=== PATIENT | female | born 1955 | race Caucasian/White ===

== ENCOUNTER → 2018-06-14 15:08 | Outpatient (CLI) | payer OTHER, SELFPAY ==
[2018-06-14 15:16] LABS: Mucous, Urine 0 SEEN /hpf (<or=2+)
[2018-06-14 15:31] LABS: Color, Urine Yellow (Yellow); Glucose, Dipstick Normal (Normal); Ketone-Dipstick Negative (Negative); Leukocyte Esterase-Dipstick 500 /ul (Negative); Nitrite-Dipstick Negative (Negative); Occult Blood-Urine 50 /ul (Negative); Protein-Dipstick 15 mg/dl (Negative); Urine Bilirubin Dipstick Negative (Negative); Urine Clarity Clear (Clear); Urine Urobilinogen Normal (Normal)
[2018-06-14 15:38] LABS: White Blood Cells >100 SEEN /hpf (0-5)
[2018-06-14 15:39] LABS: Red Blood Cells-Urine 0-5 SEEN /hpf (0-5); Squamous Epithelial Cells - UA 0-5 SEEN /hpf (5-10)
[2018-06-14 15:40] LABS: Bacteria 3+ /hpf (None Seen)
== END ==
PROVIDERS: Family Provider Family Medicine; PCP Family Medicine; Visit Provider Nurse Practitioner Family
DX: R30.0 Dysuria (principal)
CPT/HCPCS: 81001; 87086; 87088; 87186

== ENCOUNTER → 2018-10-26 15:29 | Outpatient (CLI) | payer MEDICARE, OTHER, SELFPAY ==
[2018-10-26 10:36] VITALS: BMI 26.9
[2018-10-26 16:08] LABS: Bacteria 0 SEEN /hpf (None Seen); Mucous, Urine 0 SEEN /hpf (<or=2+); Red Blood Cells-Urine 0 SEEN /hpf (0-5); Squamous Epithelial Cells - UA 0 SEEN /hpf (5-10); White Blood Cells 0 SEEN /hpf (0-5)
[2018-10-26 16:27] LABS: Color, Urine Yellow (Yellow); Glucose, Dipstick Normal (Normal); Ketone-Dipstick Negative (Negative); Leukocyte Esterase-Dipstick Negative /ul (Negative); Nitrite-Dipstick Negative (Negative); Occult Blood-Urine Negative /ul (Negative); Protein-Dipstick Negative (Negative); Specific Gravity, Urine 1.005 (1.002-1.030); Urine Bilirubin Dipstick Negative (Negative); Urine Clarity Sl. Cloudy (Clear); Urine Urobilinogen Normal (Normal)
--- OUTSIDE RECORDS SUMMARY | 2018-12-31 05:29 | XMS RPT_ITS ---
:1955 Author Organization OHIP Care Team Providers Name Role Phone Max Cates HAZARDOUS MATERIALS DRIVER-C Attending Unavailable Brown, Daniel Referring Unavailable Max Cates HAZARDOUS MATERIALS DRIVER-C Attending Unavailable Max Cates HAZARDOUS MATERIALS DRIVER-C Referring Unavailable Brown, Daniel Primary Care Unavailable Max Cates HAZARDOUS MATERIALS DRIVER-C Attending Unavailable Brown, Daniel Referring Unavailable Brown, Daniel Primary Care Unavailable Max Cates HAZARDOUS MATERIALS DRIVER-C Attending Unavailable Brown, Daniel Referring Unavailable Brown, Daniel Primary Care Unavailable Max Cates HAZARDOUS MATERIALS DRIVER-C Attending Unavailable Max Cates HAZARDOUS MATERIALS DRIVER-C Referring Unavailable Brown, Daniel Primary Care Unavailable Max Cates HAZARDOUS MATERIALS DRIVER-C Attending Unavailable Brown, Daniel Referring Unavailable PROBLEMS PROBLEMS DATE TYPE CONDITION / CODE ATTENDING STATUS SOURCE 10/26/2018 Unknown R30.0 - Dysuria / Max Cates Active [place] R30.0(ICD-10) HAZARDOUS MATERIALS DRIVER-C [facility] 10/26/2018 Unknown N39.0 - Urinary Max Cates Active [place] tract infection, HAZARDOUS MATERIALS DRIVER-C Community site not Hospital specified / Repository N39.0(ICD-10) 10/26/2018 Unknown R35.0 - Frequency CatesMax rivero Active [facility] of micturition / HAZARDOUS MATERIALS DRIVER-C Community R35.0(ICD-10) Hospital Repository 08/17/2018 Unknown M25.512 - Pain in Max Cates Active [place] left shoulder / HAZARDOUS MATERIALS DRIVER-C Community M25.512(ICD-10) Hospital Repository 08/17/2018 Unknown M75.82 - Other Cates, Max Active [place] shoulder lesions, HAZARDOUS MATERIALS DRIVER-C Community left shoulder / Hospital M75.82(ICD-10) Repository PROCEDURES PROCEDURES No Procedure Records FoundRESULTS RESULTS URINALYSIS, COMPLETE Collected: 10/26/2018 Status: F Source: [place] 4:07 PM [facility] REPOSITORY Order Comment: How was Urine Obtained? STONE REPAIRER TO SPECIFY TYPE CODE TESTS RESULT OUT OF RANGE REFERENCE UNITS LAB L400.3000 Yellow COLOR Normal Yellow LAB L400.3050 Clear Normal CLARITY Sl. Cloudy LAB L400.3200 Normal mg/dl Normal GLUCOSE, UR Normal LAB L400.3300 Negative mg/dL Normal BILIRUBIN URINE Negative LAB L400.3400 Negative mg/dl Normal KETONE UR Negative LAB L400.3465 1.002-1.030 Normal SP.GR. DIPSTX 1.005 LAB L400.3550 5.0 - 8.0 pH UR Normal 7.0 LAB L400.3600 Negative mg/dl PROT Normal DIPSTX Negative LAB L400.3700 Normal mg/dl Normal UROBILI Normal LAB L400.3750 Negative Normal NITRITE UR Negative LAB L400.3780 Negative /ul Normal OCCULT BLOOD-UR Negative LAB L400.3800 Negative /ul LEUK Normal ESTERASE Negative LAB L400.4050 0-5 /hpf WBC 0 Normal SEEN LAB L400.4100 0-5 /hpf 0 Normal RBC-UA SEEN LAB L400.4150 5-10 /hpf SQUAM 0 Normal EPI SEEN LAB L400.4300 None Seen /hpf 0 Normal BACTERIA SEEN LAB L400.4350 <or=2+ /hpf 0 Normal MUCUS, URINE SEEN Performed By: #### L400.0001 #### Laboratory [address] [place], [address] Observed: 10/26/2018 Status: F Source: [place] CULTURE, URINE 4:07 PM [facility] REPOSITORY Urine Culture Below infection level. ORGANISM 1: Mixed Gram Positive Organisms [place] Count 1000-10,000 Performed By: #### M100.0650 #### [facility] [address] [place], [address] INTERNAL MEDICINE Observed: 10/26/2018 Status: F Source: [place] OFFICE VISIT 11:56 AM [facility] REPOSITORY [facility] [address] [place] [address] [place] [address] OFFICE VISIT Date of Service: 10/26/18 MR#: [id number] Acct: [id number] Name: OK BUNN Rep #: [id number] : 1955 Provider: Max Cates NP Age/Sex: 63/F Location: [facility] Status: Signed Intake Vital Signs10/26/18 Height 5 ft 3 in 10/26/18 Weight: 152 lb 10/26/18 Body Mass Index (BMI) 26.9 10/26/18 Blood Pressure 116/77 Intake Visit Reasons: POSS UTI/LEAVING ON TIFFANY NEXT WK Chief Complaint: Poss UTI - Symptoms x 5-6 days Is patient in pain?: No Allergies Latex, Natural Rubber Allergy (Severe, Verified 10/26/18 10:38) irritation Medications cephalexin 500 mg capsule 500 mg PO BID #10 cap 10/26/18 [Rx Confirmed 10/26/18] phenazopyridine 100 mg tablet 100 mg PO TID PRN 0 Days #6 tab 10/26/18 [Rx Confirmed 10/26/18] PFSH Medical History History of kidney stones (Acute) Frequent UTI (Acute) Hyperlipemia (Chronic) Surgical History Personal history of simple renal cyst (Acute) Family History Grandmother Breast cancer Social History Smoking Status: Never smoker alcohol intake: never substance use type: does not use what type of physical activity do you participate in: none HPI HPI Chief Complaint: Poss UTI - Symptoms x 5-6 days Details: OK BUNN, is a 63 F who presents to the office today for an acute visit for urinary tract symptoms. Patient has a past medical history as listed above significant for frequent UTIs. Patient presents today for UTI symptoms for the last 5-6 days. She states she has felt burning on and off and pressure in her lower abdomen. She has been drinking lots of water to try to help with the symptoms but nothing has gone away. She states she feels like she is able to empty her bladder but still going to the bathroom frequently. She denies any urgency or flank pain. Patient states she has a history of recurrent UTIs was asking about possible urology referral. She denies any other aggravating or alleviating factors. The patient otherwise denies any fever, chills, nausea, vomiting, shortness of breath, chest pain or pressure, palpitations, orthopnea, lower extremity edema, syncope or presyncopal episodes. ROS Const Constitutional: No chills, fatigue, fever(s), frequent falls, malaise, weakness, sleep problems or change in appetite Eyes Eyes: No blurry vision, change in vision, double vision, discharge or visual disturbances ENT ENT: No abnormal hearing, ear pain, ear pressure, tinnitus or dizziness/vertigo Resp Respiratory: No cough, shortness of breath or wheezing Cardio Cardiology: No chest pain at rest, chest pain with exertion, shortness of breath, dyspnea on exertion, generalized swelling, irregular heart rhythm, lightheadedness, orthopnea, fast heart rate or palpitations Gastro GI: No abdominal pain, change in bowel habits, constipation, diarrhea, nausea/dyspepsia or vomiting Genitourinary-Female: Positive for burning urination, urinary frequency and urinary urgency; no difficulty urinating, painful urination, urinary incontinence, urinary hesitancy, urinary retention, Frequent nighttime urination/ nocturia, sexual problems, genital lesions, abnormal vaginal bleeding, pelvic pain, vaginal dryness, vaginal odor or Vaginal Itching Musc Musculoskeletal: No joint pain, back pain, joint swelling, limited range of motion, numbness or tingling Skin Skin: No change in skin color, itching, rash or wounds Breast Breast: No breast lump or breast pain Neuro Neurology: No frequent falls, weakness, visual disturbances, abnormal hearing, numbness, tingling, unsteady gait/balance, dizziness, loss of vision or memory loss Psych Psychiatric: No change in appetite, No memory loss, No anxiety, No depression, No Thoughts of harming yourself/Others Endo Endocrine: No fatigue, heat intolerance, increased thirst/drinking, increased hunger or increased urination Aller/Imm Allergy/Immunologic: No wheezing, itchy eyes or seasonal allergy symptoms Damián/Lymp Hematologic/Lymphatic: No easy bleeding, easy bruising or enlarged lymph nodes Exam Const General: cooperative, comfortable, no acute distress Nutritional Appearance: average body habitus, well nourished Orientation: alert, oriented x3 Limitations: mental status not altered Neck Neck: normal visual inspection, no lymphadenopathy Chest Chest palpation AND inspection: normal inspection of the chest Resp Effort AND Inspection: normal respiratory effort, able to speak in complete sentences, symmetric chest movement Auscultation: Bilateral: Clear to Auscultation Cardio Rate: regular rate Heart Sounds: S1 normal, S2 normal, normal S1 and S2, no click, no gallops, no murmurs, no rubs GI Inspection: normal to inspection Auscultation: normal bowel sounds, no hyperactive bowel sounds, no hypoactive bowel sounds Palpation: soft, other (patient feeling pressue in lower abdomen on palpation) Neuro General: alert, awake, oriented x3 Speech: speech normal Gait: normal gait Psych Appearance: grossly normal Mental Status: mental status grossly normal Affect: normal affect Attitude: cooperative Thought Process: normal Results [facility] Office Urine Color Yellow Last Edit by Lynn Edmondson on 10/26/18 11:01 Assessment AND Plan Problems 1. Acute cystitis without hematuria N30.00 Plan Based on patient history, symptoms and physical findings plan will be to treat patient for urinary tract infection and send urine for culture. Patient to be started on Keflex 500 mg twice daily for 5 days and Pyridium 100 mg p.o. for burning. Patient instructed on all medications and side effects and verbalizes understanding. Due to patient frequent UTIs plan will be to follow-up with urology. Will also send a urine culture and UA out for evaluation. Patient instructed to call if in the next 2-3 days is having no improvement in symptoms. Orders Orders: Referrals: Medications New: Plan Detail Follow Up as needed Coding Level of Care Code Off vis,est,level 3 Diagnoses Acute cystitis without hematuria N30.00 Urinary tract infection type: acute cystitis Hematuria presence: without hematuria 10/26/18 1156 <Electronically signed by Max MADRID> Date Max MADRID Cosigner Signature: Date (if applicable) CC: INTERNAL MEDICINE Observed: 08/22/2018 Status: F Source: [place] OFFICE VISIT 4:53 PM [facility] Internal [facility] [place] [address] OFFICE VISIT Date of Service: 08/17/18 MR#: [id number] Acct: [id number] Name: MICAELAOK LYNNE Rep #: [id number] : 1955 Provider: Max Cates NP Age/Sex: 63/F Location: [facility] Status: Signed Intake Vital Signs08/17/18 Height 5 ft 3 in Intake Visit Reasons: SHOULDER PAIN Chief Complaint: left shoulder pain Is patient in pain?: Yes (left shoulder with ROM) Pain scale (1-10): 10 Allergies Latex, Natural Rubber Allergy (Severe, Verified 01/05/18 09:18) irritation Medications fluticasone 50 mcg/actuation nasal spray,suspension 2 spray INTRANASAL QDAY #15.8 g 01/05/18 [Rx Confirmed 01/05/18] Post menopausal: Yes PFSH Medical History History of kidney stones (Acute) Frequent UTI (Acute) Hyperlipemia (Chronic) Surgical History Personal history of simple renal cyst (Acute) Family History Grandmother Breast cancer Social History Smoking Status: Never smoker alcohol intake: never substance use type: does not use what type of physical activity do you participate in: none HPI HPI Chief Complaint: left shoulder pain Details: OK BUNN, is a 63 F who presents to the office today for acute onset 1 week history left shoulder pain. The patient has a past medical history as listed above. Patient denies any recent injury, trauma, or fall that would affect her shoulder. She admits to limited range of motion due to the pain that she rates at a 2 of 10 at rest. She admits to a possible injury 6-8 weeks ago. She states that she was reaching on top of a shelf to retrieve an item and felt a burning sensation in her left shoulder. Is been treating the pain with 200 mg of ibuprofen daily. She has all used heat to treat her symptoms however this did not resolve her pain. She states her pain is achy in nature and increased with any movement. She denies any other aggravating or relieving symptoms. She denies any numbness tingling or weakness of the affected left upper extremity. The patient otherwise denies any fever, chills, nausea, vomiting, shortness of breath, chest pain or pressure, palpitations, orthopnea, lower extremity edema, syncope or presyncopal episodes. ROS Const Constitutional: No weight change, body ache, chills, fatigue, sleep problems, fever(s), change in appetite, snoring, weakness, frequent falls, headache(s) or excessive sweating Eyes Eyes: No change in vision, eye pain, light sensitivity or blurry vision ENT ENT: No headache(s), abnormal hearing, ear pain, tinnitus, nasal congestion, sore throat or neck pain Resp Respiratory: No snoring, cough, shortness of breath or wheezing Cardio Cardiology: No excessive sweating, chest pain at rest, chest pain with exertion, shortness of breath, dyspnea on exertion, palpitations, orthopnea or lightheadedness Gastro GI: No abdominal pain, change in bowel habits, constipation, diarrhea, vomiting, nausea/dyspepsia or cramping Genitourinary-Female: No burning urination, painful urination, urinary incontinence, urinary frequency, abnormal vaginal bleeding, pelvic pain or other Musc Musculoskeletal: Positive for other (left shoulder pain and limited ROM.); no neck pain, abnormal walking, joint pain, back pain, limited range of motion, numbness or tingling Skin Skin: No redness, dry skin, itching, lesions, wounds or rash Neuro Neurology: No weakness, frequent falls, headache(s), abnormal hearing, abnormal walking, numbness, tingling, abnormal speech, dizziness or memory loss Psych Psychiatric: No change in appetite, No memory loss, No anxiety, No depression, No Thoughts of harming yourself/Others Endo Endocrine: No fatigue, excessive sweating, cold intolerance, increased thirst/drinking, heat intolerance, flushing or increased hunger Aller/Imm Allergy/Immunologic: No wheezing, itchy eyes, hives or seasonal allergy symptoms Damián/Lymp Hematologic/Lymphatic: No easy bleeding, easy bruising or enlarged lymph nodes Exam Const General: cooperative, comfortable, no acute distress Nutritional Appearance: average body habitus, well nourished Orientation: alert, oriented x3 Limitations: mental status not altered [facility] Head: normal to inspection Ears: hearing grossly normal bilaterally Nose: external nose normal Eyes General: appearance normal, both eyes and all related structures Resp Effort AND Inspection: normal respiratory effort, able to speak in complete sentences, normal respiratory pattern, symmetric chest movement, no audible wheezes, no cough Auscultation: Bilateral: Clear to Auscultation Cardio Palpation: normal PMI Rate: regular rate Heart Sounds: S1 normal, S2 normal, normal S1 and S2, no click, no gallops, no murmurs, no rubs GI Inspection: normal to inspection Auscultation: normal bowel sounds, no hyperactive bowel sounds, no hypoactive bowel sounds Palpation: soft, no hepatosplenomegaly Musc Musculoskeletal: Yes joint tenderness (Left shoulder) and decreased ROM (Left shoulder) Cervical Spine: normal cervical lordosis and cervical ROM normal; no cervical muscular tenderness or pain with cervical ROM Thoracic/Lumbar Spine: thoracic and lumbar spine normal to inspection Other: left: negative drop arm, positive painful arc test, negative neers test, negative empty can, negative winn Skin General: no rashes or lesions noted, elasticity normal, turgor normal Lesions: no lesions Rashes: no rashes Neuro General: alert, awake, oriented x3, CN's II-XI intact bilaterally Speech: speech normal Gait: normal gait Motor: muscle tone normal throughout Extrem General: normal to inspection, normal gait, no edema, no pedal edema Psych Appearance: grossly normal Mental Status: mental status grossly normal Affect: normal affect Attitude: cooperative Thought Process: normal Assessment AND Plan Problems 1. Tendinitis of left rotator cuff M75.82 2. Left shoulder pain M25.512 Plan Patient symptoms are consistent with that of left rotator cuff tendinitis. No imaging required at this time. Will treat conservatively. Instructed patient that she should be taking ibuprofen 600 mg 3 times a day with food. Will also refer to physical therapy . Instructed patient not to utilize heat as this can worsen inflammation. Instructed patient on the use of ice. Patient to follow-up in 4-6 weeks or sooner if needed. Discussed red flag symptoms requiring urgent medical attention. Patient verbalized understanding. Dragon disclaimer Orders Referrals: Plan Detail Follow Up 4-6 weeks or sooner if needed Coding Level of Care Code Off vis,est,level 3 Diagnoses Tendinitis of left rotator cuff M75.82 Left shoulder pain M25.512 08/22/18 1653 <Electronically signed by Max MADRID> Date Max MADRID Cosigner Signature: Date (if applicable) CC: INTERNAL MEDICINE Observed: 06/15/2018 Status: F Source: [place] OFFICE VISIT 9:19 AM [facility] Internal Medicine [address] [place] [address] [place] [address] OFFICE VISIT Date of Service: 06/14/18 MR#: [id number] Acct: [id number] Name: OK BUNN Rep #: [id number] : 1955 Provider: Max Cates NP Age/Sex: 63/F Location: [facility] Status: Signed Intake Vital Signs06/14/18 Height 5 ft 3 in Intake Visit Reasons: Urinary tract infection Chief Complaint: urinary symptoms Is patient in pain?: Yes (with urination) Pain scale (1-10): 2 Allergies Latex, Natural Rubber Allergy (Severe, Verified 01/05/18 09:18) irritation Medications fluticasone 50 mcg/actuation nasal spray,suspension 2 spray INTRANASAL QDAY #15.8 g 01/05/18 [Rx Confirmed 01/05/18] cephalexin 500 mg capsule 500 mg PO BID #14 cap 06/14/18 [Rx Confirmed 06/14/18] Post menopausal: Yes PFSH Medical History History of kidney stones (Acute) Frequent UTI (Acute) Hyperlipemia (Chronic) Surgical History Personal history of simple renal cyst (Acute) Family History Grandmother Breast cancer Social History Smoking Status: Never smoker alcohol intake: never substance use type: does not use what type of physical activity do you participate in: none HPI HPI Chief Complaint: urinary symptoms Details: OK BUNN, is a 63 F who presents to the office today for acute urinary symptoms. Her past medical history includes history of kidney stones, hyperlipidemia, and frequent UTIs. Patient started yesterday having burning, frequency and pain with urination. She states she does have a history of frequent bladder infections and the last one was about 15 months ago. She states she usually gets 3-4 bladder infections a year. She states she does take urinary tract essentials medication daily [id number]. She denies any other aggravating or alleviating factors. She denies back pain or vaginal discharge or new sexual contacts. The patient otherwise denies any fever, chills, nausea, vomiting, shortness of breath, chest pain or pressure, palpitations, orthopnea, lower extremity edema, syncope or presyncopal episodes. ROS Const Constitutional: No weight change, body ache, chills, fatigue, sleep problems, fever(s), change in appetite, snoring, weakness, frequent falls, headache(s) or excessive sweating Eyes Eyes: No change in vision, eye pain, light sensitivity or blurry vision ENT ENT: No headache(s), abnormal hearing, ear pain, tinnitus, nasal congestion, sore throat or neck pain Resp Respiratory: No snoring, cough, shortness of breath or wheezing Cardio Cardiology: No excessive sweating, chest pain at rest, chest pain with exertion, shortness of breath, dyspnea on exertion, palpitations, orthopnea or lightheadedness Gastro GI: No abdominal pain, change in bowel habits, constipation, diarrhea, vomiting, nausea/dyspepsia or cramping Genitourinary-Female: Positive for burning urination, painful urination and urinary frequency; no urinary incontinence, abnormal vaginal bleeding, pelvic pain or other Musc Musculoskeletal: No neck pain, abnormal walking, joint pain, back pain, limited range of motion, numbness, tingling or muscle weakness Skin Skin: No redness, dry skin, itching, lesions, wounds or rash Neuro Neurology: No weakness, frequent falls, headache(s), abnormal hearing, abnormal walking, numbness, tingling, abnormal speech, dizziness or memory loss Psych Psychiatric: No change in appetite, No memory loss, No anxiety, No depression, No Thoughts of harming yourself/Others Endo Endocrine: No fatigue, excessive sweating, cold intolerance, increased thirst/drinking, heat intolerance, flushing or increased hunger Aller/Imm Allergy/Immunologic: No wheezing, itchy eyes, hives or seasonal allergy symptoms Damián/Lymp Hematologic/Lymphatic: No easy bleeding, easy bruising or enlarged lymph nodes Exam Const General: cooperative, comfortable, no acute distress Nutritional Appearance: average body habitus, well nourished Orientation: alert, oriented x3 Limitations: mental status not altered Resp Effort AND Inspection: normal respiratory effort, able to speak in complete sentences, normal respiratory pattern, symmetric chest movement, no audible wheezes, no cough Auscultation: Bilateral: Clear to Auscultation Cardio Palpation: normal PMI Rate: regular rate Heart Sounds: S1 normal, S2 normal, normal S1 and S2, no click, no gallops, no murmurs, no rubs GI Inspection: normal to inspection Auscultation: normal bowel sounds Palpation: soft General: No CVA tenderness, bimanual renal exam normal bilaterally, other (mild suprapubic tenderness upon palpation), bladder normal to palpation Bimanual Exam- Vagina AND Uterus: bladder normal to palpation [facility] Musculoskeletal: No joint tenderness, decreased ROM or muscle weakness Skin General: no rashes or lesions noted, elasticity normal, turgor normal Lesions: no lesions Rashes: no rashes Neuro General: alert, awake, oriented x3, CN's II-XI intact bilaterally Speech: speech normal Gait: normal gait Motor: muscle tone normal throughout Extrem General: normal to inspection, normal gait, no edema, no pedal edema Psych Appearance: grossly normal Mental Status: mental status grossly normal Affect: normal affect Attitude: cooperative Thought Process: normal Assessment AND Plan 1. Acute cystitis with hematuria N30.01 Plan Patient symptoms include burning frequency, painful with urination x 1 day. Dipstick of urine showed a trace amount of blood and a large amount of leukocytes the rest of findings within normal limits. Urine sent out for culture. Patient prescribed Keflex 500 twice a day and Pyridium 100 mg 3 times daily as needed. Discussed discoloration of urine when taking Pyridium. Discussed red flag symptoms and when to seek urgent medical attention. Patient to follow-up as previously scheduled or as needed if symptoms worsen. If she continues with recurrent UTIs as in the past, discussed following up with Dr. Jay female urology. This note was generated with [employer] software. It may contain incorrect words, spelling, and punctuation that were not noted in checking the note before signing. Plan Detail Other Orders Orders: Other Medications New: Discontinued: phenazopyridine (Pyridium) [id number] mg PO TID 6 doses PRN pain Background Daemon d Reason: By Stop Date Follow Up Previously scheduled or sooner Coding Level of Care Code Off vis,est,level 3 Diagnoses Acute cystitis with hematuria N30.01 Hematuria presence: with hematuria 06/15/18 0919 <Electronically signed by Max MADRID> Date Max MADRID Cosigner Signature: Date (if applicable) CC: URINALYSIS, COMPLETE Collected: 06/14/2018 Status: F Source: [place] 12:00 AM [facility] REPOSITORY Order Comment: How was Urine Obtained? STONE REPAIRER TO SPECIFY TYPE CODE TESTS RESULT OUT OF RANGE REFERENCE UNITS LAB L400.3000 Yellow COLOR Normal Yellow LAB L400.3050 Clear Normal CLARITY Clear LAB L400.3200 Normal mg/dl Normal GLUCOSE, UR Normal LAB L400.3300 Negative mg/dL Normal BILIRUBIN URINE Negative LAB L400.3400 Negative mg/dl Normal KETONE UR Negative LAB L400.3465 1.002-1.030 Normal SP.GR. DIPSTX 1.010 LAB L400.3550 5.0 - 8.0 pH UR Normal 7.0 LAB L400.3600 Negative mg/dl High PROT 15 DIPSTX LAB L400.3700 Normal mg/dl Normal UROBILI Normal LAB L400.3750 Negative Normal NITRITE UR Negative LAB L400.3780 Negative /ul High 50 OCCULT BLOOD-UR LAB L400.3800 Negative /ul High LEUK ESTERASE 500 LAB L400.4050 0-5 /hpf WBC Normal >100 SEEN LAB L400.4100 0-5 /hpf Normal RBC-UA 0-5 SEEN LAB L400.4150 5-10 /hpf SQUAM Normal EPI 0-5 SEEN LAB L400.4300 None Seen /hpf 3+ Normal BACTERIA LAB L400.4350 <or=2+ /hpf 0 Normal MUCUS, URINE SEEN Performed By: #### L400.0001, M100.0650 #### Laboratory [address] [facility]. [place], [place], [id number] Observed: 06/14/2018 Status: F Source: [place] CULTURE, URINE 12:00 AM [facility] REPOSITORY Urine Culture ORGANISM 1: Presumptive E. coli [place] Count 11,000-25,000 Presumptive E. coli: REACTION Amoxacillin/Clavulanic Acid $ <=2 S Ampicillin $ <=2 S Ampicillin/Sulbactam $ <=2 S Cefazolin $ <=4 S Cefepime $ <=1 S Ceftriaxone $ <=1 S Ciprofloxacin $ <=0.25 S ESBL - Ertapenim $$$ <=0.5 S Gentamicin $ <=1 S Imipenem *NF <=0.25 S Levofloxacin $ <=0.12 S Nitrofurantoin $ <=16 S Piperacillin/Tazobactam $$ <=4 S Tobramycin $ <=1 S Trimethoprim/Sulfametho $ <=20 S (NF) indicates non-formulary drug at Pharmacy. Approval by Infectious Disease Specialist required before non-formulary drugs may be ordered and/or dispensed. Performed By: #### L400.0001, M100.0650 #### Laboratory [address] [place], [place], [id number] INTERNAL MEDICINE Observed: 01/05/2018 Status: F Source: [place] OFFICE VISIT 4:52 PM [facility] Internal Medicine [address] [place] [address] [place] [address] OFFICE VISIT Date of Service: 01/05/18 MR#: [id number] Acct: [id number] Name: OK BUNN Rep #: [id number] : 1955 Provider: Max Cates NP Age/Sex: 62/F Location: [facility] Status: Signed Intake Vital Signs01/05/18 Height 5 ft 3 in Intake Visit Reasons: SINUS INF - DR MAGDALENO PT Chief Complaint: sinus pressure Is patient in pain?: No Allergies Latex, Natural Rubber Allergy (Severe, Verified 01/05/18 09:18) irritation Medications fluticasone 50 mcg/actuation nasal spray,suspension 2 spray INTRANASAL QDAY #15.8 g 01/05/18 [Rx Confirmed 01/05/18] PFSH Medical History History of kidney stones (Acute) Frequent UTI (Acute) Hyperlipemia (Chronic) Surgical History Personal history of simple renal cyst (Acute) Family History Grandmother Breast cancer Social History Smoking Status: Never smoker alcohol intake: never substance use type: does not use what type of physical activity do you participate in: none HPI HPI Chief Complaint: sinus pressure Details: OK BUNN, is a 62 F who presents to the office today for an acute visit of cough, congestion, and sinus pressure 6 days. She has a past medical history as listed above. The patient states that her symptoms of nonproductive cough, nasal congestion, sinus pressure, and intermittent fever has been going on for 6 days now and has been progressively improving. The patient states that she no longer has a fever. She does state that she was taking xtgx-pvk-wfmbadu Mucinex with mild relief. The patient denies any sick contacts, though wanted to be examined today to make sure that she was not contagious because she is going to have relatives visiting. She denies any other etpi-rtf-xyouojm treatment. She denies any other aggravating or alleviating factors. She otherwise denies any nausea, vomiting, shortness of breath, chest pain or pressure, syncope or presyncopal episodes. ROS Const Constitutional: Positive for fever(s); no weight change, body ache, chills, fatigue, sleep problems, change in appetite, snoring, weakness, frequent falls, headache(s) or excessive sweating Eyes Eyes: No change in vision, eye pain, light sensitivity or blurry vision ENT ENT: Positive for sinus pain and nasal discharge; no headache(s), abnormal hearing, ear pain, tinnitus, nasal congestion, sore throat or neck pain Resp Respiratory: No snoring, cough, shortness of breath or wheezing Cardio Cardiology: No excessive sweating, chest pain at rest, chest pain with exertion, shortness of breath, dyspnea on exertion, palpitations, orthopnea or lightheadedness Gastro GI: Positive for diarrhea; no abdominal pain, change in bowel habits, constipation, vomiting, nausea/dyspepsia or cramping Musc Musculoskeletal: No neck pain, abnormal walking, joint pain, back pain, limited range of motion, numbness or tingling Skin Skin: No redness, dry skin, itching, lesions, wounds or rash Neuro Neurology: No weakness, frequent falls, headache(s), abnormal hearing, abnormal walking, numbness, tingling, abnormal speech, dizziness or memory loss Psych Psychiatric: No change in appetite, No memory loss, No anxiety, No depression, No Thoughts of harming yourself/Others Endo Endocrine: No fatigue, excessive sweating, cold intolerance, increased thirst/drinking, heat intolerance, flushing or increased hunger Aller/Imm Allergy/Immunologic: No wheezing, itchy eyes, hives or seasonal allergy symptoms Damián/Lymp Hematologic/Lymphatic: No easy bleeding, easy bruising or enlarged lymph nodes Exam Const General: cooperative, comfortable, no acute distress Nutritional Appearance: average body habitus, well nourished Orientation: alert, oriented x3 Limitations: mental status not altered [facility] Head: normal to inspection Ears: hearing grossly normal bilaterally, TM abnormal with fluid behind the TM bilaterally Nose: external nose normal, mucous membranes and turbinates abnormal (Nasal mucosa edematous) Face and sinus: sinus tenderness (Mild sinus tenderness in the ethmoid region) ethmoid Mouth: oral mucosae normal Throat: posterior oropharynx normal Neck Neck: no lymphadenopathy Resp Effort AND Inspection: normal respiratory effort, able to speak in complete sentences, normal respiratory pattern, symmetric chest movement, no audible wheezes, no cough Auscultation: Bilateral: Clear to Auscultation Cardio Palpation: normal PMI Rate: regular rate Heart Sounds: S1 normal, S2 normal, normal S1 and S2, no click, no gallops, no murmurs, no rubs Skin General: no rashes or lesions noted, elasticity normal, turgor normal Lesions: no lesions Rashes: no rashes Neuro General: alert, awake, oriented x3, CN's II-XI intact bilaterally Speech: speech normal Gait: normal gait Motor: muscle tone normal throughout Psych Appearance: grossly normal Mental Status: mental status grossly normal Affect: normal affect Attitude: cooperative Thought Process: normal Assessment AND Plan 1. Acute ethmoidal sinusitis J01. Plan The patient does have acute ethmoidal sinusitis. Given the duration of her symptoms, discussed with the patient that this is most likely viral in nature. Her symptoms are gradually improving. Discussed supportive methods that she can take including the use of the [place] pot, the use of an hqxq-ind-vpvsrwz antihistamine, the use of analgesics for sinus pain, and the use of Flonase. Discussed with patient that no antibiotic is indicated at this time, however if her symptoms progress or worsen, this may be considered at a later time. Patient educated on red flag symptoms that require urgent medical attention. Patient educated on supportive measures such as increasing fluid intake and proper hand hygiene to prevent transmission. Plan Detail Other Medications New: fluticasone 50 mcg/actuation (Flonase Allergy Relief) adminis2 sprays Intranasal QDAY ter into each nostril Follow Up As previously scheduled or sooner if needed Coding Level of Care Code Off vis,new,level 3 Diagnoses Acute ethmoidal sinusitis J01.20 01/05/18 3448 <Electronically signed by Max AMDRID> Date Max MADRID Cosigner Signature: Date (if applicable) CC: ALLERGIES ALLERGIES DATE TYPE / CODE NAME / CODE REACTION SEVERITY SOURCE 10/26/2018 Drug Latex, Natural irritation [facility] Allergy/416 Rubber/[id number] [facility] 184927(SNOM 526(RXNORM) Repository ED CT) ENCOUNTERS ENCOUNTERS ADMIT/DISCHARGE ACCOUNT ADMITTING ENCOUNTER LOCATION SOURCE NUMBER CLASS 10/26/2018 [id number] Ambulatory [place] 3 [facility] ing:LABSPEC Repository 10/26/2018/ [id number] Ambulatory BMSBuilding:B [place] 9 4 [facility] Repository 08/17/2018/ [id number] Ambulatory BMSBuilding:B [place] 8 7 [facility] Repository 06/14/2018 [id number] Ambulatory [place] 2 [facility] ing:LABSPEC Repository 06/14/2018/ [id number] Ambulatory BMSBuilding:B [place] 8 2 [facility] Repository 01/05/2018/ [id number] Ambulatory BMSBuilding:B [place] 8 4 [facility] Repository PAYERS PAYERS ENCOUNTER GUARANTOR PAYER SUBSCRIBER SOURCE 10/26/2018 [facility] [place] [id number] Insurance:MEDICARE HOFSTETTERDOB[facility] [id number], [place] Number: Repository [id number]: [phone] [id number] [phone] () Date:2018-10-26 10/26/2018 Secondary [place] Insurance:MUTUAL OF COMMUNITY HEALTHTTERDOB: [facility] Number: [id number] Hospital [id number] Repository Date:3407-33-50[place]KS [place], [place] [address]EM: 10/26/2018 Tertiary NOT GIVENUNK [place] Insurance:SELF PAY [facility] Number: Effective Repository Date:2018-10-26 10/26/2018 [place] [facility] [place] [id number] Insurance:MEDICARE HOTETTERDOB: [facility] PART A [facility] [id number] Number: Repository [id number]: [phone] [id number] [phone] () Date:2018-10-26 10/26/2018 Secondary [place] Insurance:MUTUAL OF HOFSTETTERDOB: [facility] Number: [id number] Hospital [id number] Repository Date:0873-02-59SXCOEZ [place], [place] [address]YG: 10/26/2018 Tertiary NOT GIVENUNK [place] Insurance:SELF PAY [facility] Number: Effective Repository Date:2018-10-26 08/17/2018 [place] [id number] Insurance:MEDICARE HOFSTETTERDOB: [facility] [address] PART A [facility] [id number], [place] Number: Repository [address]Ffn: [phone] [id number] [phone] () Date:2018-08-13 08/17/2018 [place] Insurance:MUTUAL OF [facility]: [facility] Number: [id number] Hospital [id number] Repository Date:3325-77-20PRYHQR [place], [place] [address]ZJ: 08/17/2018 Tertiary NOT GIVENUNK [place] Insurance:SELF PAY [facility] Number: Effective Repository Date:2018-08-17 06/14/2018 [place] [facility] [place] [id number] Insurance:MEDICAL HofstetterDOB: [facility] [address] [id number], [place] Number: Repository [id number]: [phone] [id number] [phone] () Date:[id number] [address] [place] [id number]: 06/14/2018 Secondary NOT GIVENUNK [place] Insurance:SELF PAY [facility] Number: Effective Repository Date:2018-06-14 06/14/2018 [place] [facility] [place] [id number] Insurance:MEDICAL HofstetterDOB: [facility] [id number] Number: Repository [id number]: 330 [id number] [phone] () Date:1098-94-28KF [address] [place] [id number]: 06/14/2018 Secondary NOT GIVENUNK [place] Insurance:SELF PAY [facility] Number: Effective Repository Date:2018-06-14 01/05/2018 [place] [facility] [place] [id number] Insurance:MEDICAL HofstetterDOB: [facility] [id number], [place] Number: Repository [id number]: 330 [id number] [phone] () Date:6951-52-80DY [address] [place] [id number]: 01/05/2018 Secondary NOT GIVENUNK [place] Insurance:SELF PAY [facility] Number: Effective Repository Date:2018-01-05
== END ==
PROVIDERS: Family Provider Family Medicine; PCP Family Medicine; Referring Provider Nurse Practitioner Family; Visit Provider Nurse Practitioner Family
DX: N39.0 Urinary tract infection, site not specified (principal); R30.0 Dysuria
CPT/HCPCS: 81001; 87086; 87088

== ENCOUNTER → 2019-12-20 10:04 | Outpatient (CLI) | payer MEDICARE, OTHER, SELFPAY ==
[2018-10-26 10:36] VITALS: BMI 26.9
[2019-12-20 10:10] LABS: Mucous, Urine 0 SEEN /hpf (<or=2+)
[2019-12-20 12:36] LABS: Color, Urine Yellow (Yellow); Glucose, Dipstick Normal (Normal); Ketone-Dipstick Negative (Negative); Leukocyte Esterase-Dipstick 500 /ul (Negative); Nitrite-Dipstick Negative (Negative); Occult Blood-Urine 250 /ul (Negative); Protein-Dipstick 15 mg/dl (Negative); Urine Bilirubin Dipstick Negative (Negative); Urine Clarity Sl. Cloudy (Clear); Urine Urobilinogen Normal (Normal)
[2019-12-20 13:53] LABS: White Blood Cells 50-100 SEEN /hpf (0-5)
[2019-12-20 13:54] LABS: Red Blood Cells-Urine 50-100 SEEN /hpf (0-5); Squamous Epithelial Cells - UA 0-5 SEEN /hpf (5-10)
[2019-12-20 13:55] LABS: Bacteria RARE /hpf (None Seen)
== END ==
PROVIDERS: PCP Family Medicine; Referring Provider Nurse Practitioner Family; Visit Provider Nurse Practitioner Family
DX: R30.0 Dysuria (principal)
CPT/HCPCS: 81001; 87086; 87088

== ENCOUNTER → 2020-02-28 07:45 | Outpatient (CLI) | payer MEDICARE, OTHER, SELFPAY ==
[2019-12-20 14:23] VITALS: BMI 26.9
--- NOTE | 2020-02-28 08:17 | US_ITS ---
STUDY: RENAL ULTRASOUND - COMPLETE REASON FOR EXAM: Female, 65 years old. Urinary frequency, and UTIs TECHNIQUE: Ultrasound evaluation of the kidneys was performed with real-time and static reilly-scale imaging. COMPARISON: None. FINDINGS: RIGHT KIDNEY: Normal location of the right kidney, which is normal in size. The right kidney measures 11.4 x 6.5 x 3 point cm. There is a normal cortex of the right kidney. The renal cortex measures 1.1 cm. 2 separate nonobstructing stones measuring 3 and 4 mm. There is no right hydronephrosis. DISTAL RIGHT URETER: There is non-visualization of the distal right ureter. There is no demonstrated right ureterovesical junction calculus. There is a visualized right ureteral jet. LEFT KIDNEY: Normal location of the left kidney, which is normal in size. The left kidney measures 11.5 x 5.5 x 4.7 cm. There is a normal cortex of the left kidney. The renal cortex measures 1.1 cm. There is a simple 5.5 x 5.0 x 4.8 cm cyst there are 2 nonobstructing 4 mm stones. There is no left hydronephrosis. DISTAL LEFT URETER: There is non-visualization of the distal left ureter. There is no demonstrated left ureterovesical junction calculus. There is a visualized left ureteral jet. AORTA: There is no elongation or tortuosity of the abdominal aorta. I.V.C.: The IVC is patent. BLADDER: The bladder is sonographically normal Incidental note is made of a right ovarian cyst measuring 3.6 x 3.5 x 3.5 cm, dedicated pelvic ultrasound follow-up recommended to assure resolution US/Kidney and Bladder IMPRESSION: Bilateral nonobstructing nephrolithiasis Left renal cyst Right ovarian cyst, short-term pelvic ultrasound recommended to ensure resolution Simple left renal cyst, no further workup needed. Electronically Signed: [place] Herbert MD at 17:18 EDT , Service support ,
== END ==
PROVIDERS: PCP Family Medicine; Referring Provider Urology; Visit Provider Urology
DX: N39.0 Urinary tract infection, site not specified (principal); R35.0 Frequency of micturition; N28.1 Cyst of kidney, acquired; Z87.442 Personal history of urinary calculi
CPT/HCPCS: 76770

== ENCOUNTER → 2020-04-21 14:37 | Outpatient (CLI) | payer MEDICARE, OTHER, SELFPAY ==
[2020-04-21 13:47] VITALS: BMI 26.9
[2020-04-27 16:21] LABS: HPV Reflexed? NOT INDICATED
== END ==
PROVIDERS: PCP Family Medicine; Referring Provider Family Medicine; Visit Provider Family Medicine
DX: Z01.419 Encounter for gynecological examination (general) (routine) without abnormal findings (principal)
CPT/HCPCS: 88175; G0145

== ENCOUNTER → 2020-04-27 07:49 | Outpatient (CLI) | payer MEDICARE, OTHER, SELFPAY ==
[2019-12-20 14:23] VITALS: BMI 26.9
[2020-04-21 13:47] VITALS: BMI 26.9
--- NOTE | 2020-04-27 07:51 | US_ITS ---
STUDY: ULTRASOUND OF THE FEMALE PELVIS - COMPLETE REASON FOR EXAM: Female, 65 years old. OVARIAN CYST LMP: Unknown. TECHNIQUE: Transabdominal and Transvaginal TECHNICAL QUALITY: Adequate. COMPARISON: None. FINDINGS: The uterus is anteverted and is in a midline position. The uterus measures 6.5 x 4.1 x 3.0 cm. Normal uterine cervix. The endometrium measures 2.7 mm in thickness, and is hyperechoic. There is no demonstrated endometrial mass. There is no demonstrated myometrial mass. I.U.D. - The patient does not have an I.U.D. there is a calcification within the cervix which may be due to previous instrumentation The right ovary is visualized. The right ovary measures 4.8 x 3.9 x 3.3 cm. There is a simple 3.7 x 3.3 x 3.6 cm cyst.. There is normal arterial and normal venous vascularity. The left ovary is visualized. The left ovary measures 1.4 x 1.4 x 0.8 cm. There is no left ovarian cyst or ovarian mass. There is no visualized left adnexal mass or complex lesion. There is normal arterial and normal venous vascularity. There is no fluid in the cul-de-sac. The pre void volume of the bladder was 234.76 ml. The post void volume of the bladder was less than 5 ml. Polycystic ovary disease: No. US/Pelvic (Non ) IMPRESSION: Right ovarian cyst, given patient''s age, short-term follow-up recommended to assure resolution. Endometrium is of normal thickness. No demonstrated masses. No free fluid Electronically Signed: [place] Herbert MD at 11:29 EDT , Service support ,
--- NOTE | 2020-04-27 08:24 | US_ITS ---
STUDY: ULTRASOUND OF THE FEMALE PELVIS - COMPLETE REASON FOR EXAM: Female, 65 years old. OVARIAN CYST LMP: Unknown. TECHNIQUE: Transabdominal and Transvaginal TECHNICAL QUALITY: Adequate. COMPARISON: None. FINDINGS: The uterus is anteverted and is in a midline position. The uterus measures 6.5 x 4.1 x 3.0 cm. Normal uterine cervix. The endometrium measures 2.7 mm in thickness, and is hyperechoic. There is no demonstrated endometrial mass. There is no demonstrated myometrial mass. I.U.D. - The patient does not have an I.U.D. there is a calcification within the cervix which may be due to previous instrumentation The right ovary is visualized. The right ovary measures 4.8 x 3.9 x 3.3 cm. There is a simple 3.7 x 3.3 x 3.6 cm cyst.. There is normal arterial and normal venous vascularity. The left ovary is visualized. The left ovary measures 1.4 x 1.4 x 0.8 cm. There is no left ovarian cyst or ovarian mass. There is no visualized left adnexal mass or complex lesion. There is normal arterial and normal venous vascularity. There is no fluid in the cul-de-sac. The pre void volume of the bladder was 234.76 ml. The post void volume of the bladder was less than 5 ml. Polycystic ovary disease: No. US/Transvaginal Non- IMPRESSION: Right ovarian cyst, given patient''s age, short-term follow-up recommended to assure resolution. Endometrium is of normal thickness. No demonstrated masses. No free fluid Electronically Signed: [place] Herbert MD at 11:29 EDT , Service support ,
== END ==
PROVIDERS: PCP Family Medicine; Referring Provider Urology; Visit Provider Urology
DX: N83.202 Unspecified ovarian cyst, left side (principal)
CPT/HCPCS: 76830; 76856

== ENCOUNTER → 2020-05-18 15:35 | Outpatient (CLI) | payer MEDICARE, OTHER, SELFPAY ==
[2020-04-21 13:47] VITALS: BMI 26.9
--- NOTE | 2020-05-18 15:35 | BI_ITS ---
MAMMOGRAPHY - BILATERAL SCREENING REASON FOR EXAM: Female, 65 years old. Routine annual screening examination. PERTINENT HISTORY: Grandmother with breast cancer. TECHNIQUE: Digital bilateral breast jennifer (3D mammographic acquisition) in the CC and MLO projections. 2-D mediolateral oblique (MLO) and craniocaudad (CC) views of both breasts were obtained. CAD: Full Field Digital Mammography with Computer Added Detection was performed. COMPARISON: Comparison is made with prior EXAMINATION dated 06/06/2008. FINDINGS: Breast Composition: The breasts are heterogeneously dense, which may obscure small masses. There are no dominant masses or suspicious calcifications. No other significant abnormalities are identified. There has been no significant change since the prior study. BI/SCREEN MAMM (CAD) W/JENNIFER BILAT IMPRESSION: Stable bilateral screening mammogram. Yearly follow-up mammogram recommended. (A) ASSESSMENT CATEGORY: BIRADS Category 1: Negative. A letter regarding these results will be sent to the patient by the facility within 30 days. Approximately 10% of breast cancers are not detected by mammography. A normal mammogram should not delay biopsy of a clinically suspicious abnormality. [id number] Electronically Signed: Brendan Alonso, at 14:03 EDT , Service support ,
== END ==
PROVIDERS: PCP Family Medicine; Referring Provider Family Medicine; Visit Provider Family Medicine
DX: Z12.31 Encounter for screening mammogram for malignant neoplasm of breast (principal)
CPT/HCPCS: 77063; 77067

== ENCOUNTER → 2023-11-29 | Outpatient (CLI) | payer MEDICARE, OTHER, SELFPAY ==
[2023-11-29 13:28] LABS: Absolute Lymphocyte Count 2.35 X10^3/uL (0.83-4.51); Absolute Neutrophil Count 5.9 X10^3/uL (2.0-7.7); Basophil# 0.04 X10^3/uL; Basophil% 0.4 % (0-1); Eosinophil# 0.12 X10^3/uL; Eosinophils% 1.3 % (0-5); Hematocrit 41.3 % (37-47); Hemoglobin 13.7 g/dL (12.0-15.0); Lymphocyte # 2.35 X10^3/ul (0.83-4.51); Lymphocyte % 26.1 % (19-41); Mean Corp Hgb Conc 33.2 g/dL (32-36); Mean Corpuscular Hgb 29.8 pg (27.0-32.0); Mean Corpuscular Volume 89.8 fL (81-99); Mean Platelet Vol. 11.4 fl (6.2-12.0); Monocyte# 0.63 X10^3/uL; NRBC Flagged by Analyzer 0 % (0-5); Neutrophil # 5.85 X10^3/uL (2.7-7.7); Neutrophil % 64.9 % (47-70); Platelet Count 337 K/mm3 (150-450); RBC Distribution Width CV 13.5 % (11.6-14.6)
[2023-11-29 13:34] LABS: Erythrocyte Sedimentation Rate 11 mm/hr (0-30)
[2023-11-29 14:02] LABS: ALB/GLOB Ratio 0.9 RATIO (0.9-2.4); AST(SGOT) 19 U/L (15-37); Alanine Aminotransfer ALT/SGPT 21 U/L (13-56); Albumin, Serum 3.7 g/dL (3.2-5.0); Alkaline Phosphatase 119 U/L (45-117); Anion Gap 5 (5-15); BUN 17 mg/dL (7-18); BUN/Creat Ratio 24.8 RATIO (10-20); CRP 8.88 mg/L (0.0-3.0); Calcium,Total 9.9 mg/dL (8.5-10.1); Chloride 108 mmol/L (98-107); Creatinine, Serum 0.68 mg/dL (0.55-1.02); EST Glomerular Filtration Rate 90 mL/min (>60); Est Glom Filt Rate - Afr Amer 109 mL/min (>60); Globulin 3.9 g/dL (2.2-4.2); Glucose 103 mg/dL (74-106); Potassium 4.3 mmol/L (3.5-5.1); Protein, Total 7.6 g/dL (6.4-8.2); Rheumatoid Factor < 10.0 IU/mL (<15); Sodium Level 140 mmol/L (136-145)
[2023-11-30 11:09] LABS: ANTINUCLEAR ANTIBODIES DIRECT Negative (Negative)
== END | disposition home or self-care (01) ==
LOC: BIMLAB 11:52
PROVIDERS: PCP Family Medicine; Visit Provider Family Medicine
DX: M19.90 Unspecified osteoarthritis, unspecified site (principal); E78.5 Hyperlipidemia, unspecified
CPT/HCPCS: 36415; 80053; 85025; 85652; 86038; 86140; 86225; 86235; 86431

== ENCOUNTER → 2024-01-02 | Outpatient (CLI) | payer MEDICARE, OTHER, SELFPAY ==
--- NOTE | 2024-01-02 12:00 | RAD_ITS ---
EXAM: XR LEFT KNEE COMPLETE, 4 OR MORE VIEWS CLINICAL INDICATION: PAIN TECHNIQUE: Four or more views of the left knee. COMPARISON: No relevant prior studies available. FINDINGS: BONES/JOINTS: Unremarkable. No acute fracture. No subluxation. Normal alignment. Preservation of the joint space. No sclerotic or destructive changes observed. SOFT TISSUES: Unremarkable. No soft tissue swelling or gas. No radiopaque foreign body. RAD/Knee 4 or More Views IMPRESSION: Negative left knee x-rays. Electronically Signed: Aron Bowman MD at 0:15 EDT ,
--- NOTE | 2024-01-02 12:05 | RAD_ITS ---
INDICATION: PAIN EXAMINATION/TECHNIQUE: X-RAY - RIGHT XR Knee Complete 4 Views or More 4 VIEWS COMPARISON: None. FINDINGS: BONES: No fracture demonstrated. Mild narrowing of the patellofemoral joint space. JOINTS: No dislocation. SOFT TISSUES: Unremarkable. RAD/Knee 4 or More Views IMPRESSION: Mild degenerative changes. No evidence of fracture. Electronically Signed: Domi Cruz MD at 8:14 EDT ,
== END | disposition home or self-care (01) ==
LOC: MTRAD 11:14
PROVIDERS: PCP Family Medicine; Referring Provider Family Medicine; Visit Provider Family Medicine
DX: M25.561 Pain in right knee (principal); M25.562 Pain in left knee
CPT/HCPCS: 73564

== ENCOUNTER → 2024-01-10 | Outpatient (CLI) | payer MEDICARE, OTHER, SELFPAY ==
--- NOTE | 2024-01-10 12:56 | NEURO_ITS ---
NCS and/or EMG Patient Report Ordering Doctor: Daniel Reddy DATE OF SERVICE: 01/10/24 Kimberly presents for electrodiagnostic testing of the lower limbs. She complains of numbness and tingling in the hands, worse on the left side. Electrodiagnostic findings: Left median motor nerve demonstrates prolonged dista l latency with normal amplitude and reduced conduction velocity. Right median motor nerve demonstrates normal distal latency, amplitude and conduction velocity. Ulnar motor response is within normal limits bilaterally. Normal median and ulnar F?waves. Prolonged median sensory latency at the wrist bilaterally. Normal ulnar and radial sensory responses. Needle EMG testing was performed in the upper limbs. All muscles tested showed no evidence of denervation with normal motor unit action potentials. Electrodiagnostic impression: This is an abnormal study in the upper limbs 1. Electrodiagnostic findings suggestive of bilateral median mononeuropathy. This is consistent with a moderate left and mild right carpal tunnel syndrome. Multi Select Codes Neurology Neurology Interp Codes: 97013-95 Musc test done w/n test comp (interp) (2) and 77145-00 Nrv cndj test 9-10 studies (interp)
== END | disposition home or self-care (01) ==
LOC: PSN 08:31
PROVIDERS: PCP Family Medicine; Referring Provider Family Medicine; Visit Provider Family Medicine
DX: G56.03 Carpal tunnel syndrome, bilateral upper limbs (principal)
CPT/HCPCS: 95886; 95911

== ENCOUNTER 2024-02-22 08:30 | Outpatient (RCR) | payer MEDICARE, OTHER, SELFPAY ==
--- NOTE | 2024-02-26 13:52 | HP.PTDCSUM ---
Discharge Summary D/C summary: It has been my pleasure to treat OK BUNN referred by CAROL Liz, with the diagnosis of Shoulder and knee pain for a total of 7 visit(s). Discharge Date: 02/26/24 Please see the following information for a summary of their discharge status. Subjective Subjective: Patient reports she feels great while doing exercises but is painful the next day. R shoulder was hurting more after last session and wonders if carrying bags in her R arm that day caused her shoulder pain that night. Pain Overall body pain: Pain Intensity (Out of 10): 3 Objective Objective/Function: Dialed back the load on a few Postural/RTC exercises to alleviate pain patient was having with better tolerance. Patient requested some stretches for her Upper and LE's that she can do in the morning to help with her mobility and decrease morning stiffness, printed out pics, patient demonstrated good understanding. Goals Goal 1:: Decrease overall body pain x 50% to aid with sleep Goal 2:: Pt will be able to perform 12 sit to stands in 30 sec to aid with IADL's Goal 3:: I with HEP Plan Plan: Pt has cancelled all visits stating that she thinks therapy is making her worse(inconsistent with subjective from notes.) She will return to doctor regarding pain and wishes to be discharged from PT. D/C Information Discharge Comments: see plan d/c sentence: If there are questions or concerns regarding this patient's physical therapy, please feel free to call me at [phone]. Thank you for the referral of this patient. Sincerely, Laurent Alatorre, DPT, OCS, CSCS Balance/Gait/Functional tests Balance/Special Test Scores Lower Extremity Functional Score: 34
== END 2024-02-22 19:00 | disposition home or self-care (01) ==
LOC: PT 08:30
PROVIDERS: PCP Family Medicine; Referring Provider Physician Assistant; Visit Provider Physician Assistant
DX: M25.569 Pain in unspecified knee (principal); M75.41 Impingement syndrome of right shoulder
CPT/HCPCS: 97110; 97161

== ENCOUNTER → 2024-03-19 | Outpatient (CLI) | payer MEDICARE, OTHER, SELFPAY ==
--- NOTE | 2024-03-19 14:20 | RAD_ITS ---
STUDY: X-RAY - PELVIS REASON FOR EXAM: Female, 69 years old. Pain. TECHNIQUE: One view of the pelvis was obtained. COMPARISON: None. FINDINGS: Normal bowel gas pattern with air seen to the rectosigmoid. Calcifications projected over the left gluteal region which may be secondary to injection granulomas. Osteopenia. Mild arthrosis of the sacroiliac joints. Normal visualized bilateral superior and inferior pubic rami. Mild arthrosis of the symphysis pubis. Normal ischial tuberosities. Mild arthrosis of both hips. RAD/Pelvis 1 or 2 Views IMPRESSION: Osteopenia with osteoarthritic changes. No other significant abnormality. Electronically Signed: Sixto Julio MD at 9:36 EDT ,
[2024-03-19 17:43] LABS: Absolute Lymphocyte Count 2.21 X10^3/uL (0.83-4.51); Absolute Neutrophil Count 7.6 X10^3/uL (2.0-7.7); Basophil# 0.07 X10^3/uL; Basophil% 0.7 % (0-1); Eosinophil# 0.08 X10^3/uL; Eosinophils% 0.8 % (0-5); Hematocrit 42.3 % (37-47); Lymphocyte # 2.21 X10^3/ul (0.83-4.51); Lymphocyte % 20.8 % (19-41); Mean Corp Hgb Conc 33.1 g/dL (32-36); Mean Corpuscular Hgb 29.3 pg (27.0-32.0); Mean Corpuscular Volume 88.5 fL (81-99); Mean Platelet Vol. 10.9 fl (6.2-12.0); Monocyte# 0.61 X10^3/uL; Monocyte% 5.7 % (0-10); NRBC Flagged by Analyzer 0 % (0-5); Neutrophil # 7.62 X10^3/uL (2.7-7.7); Neutrophil % 71.6 % (47-70); Platelet Count 398 K/mm3 (150-450); RBC Distribution Width CV 14.7 % (11.6-14.6); RBC Distribution Width SD 48.2 fl (35.1-43.9); Red Blood Count 4.78 M/mm3 (4.2-5.4); White Blood Count 10.6 K/mm3 (4.4-11.0)
[2024-03-19 18:02] LABS: Erythrocyte Sedimentation Rate 26 mm/hr (0-30)
[2024-03-19 18:41] LABS: Hepatitis B Surface Antibody Non-Reactive; Hepatitis B Surface Antigen Non-Reactive (Nonreactive); Hepatitis C Antibody Non-Reactive (Nonreactive)
[2024-03-19 19:12] LABS: AST(SGOT) 19 U/L (15-37); Alanine Aminotransfer ALT/SGPT 17 U/L (13-56); Albumin, Serum 3.8 g/dL (3.2-5.0); Alkaline Phosphatase 138 U/L (45-117); Anion Gap 6 (5-15); BUN 16 mg/dL (7-18); BUN/Creat Ratio 24.5 RATIO (10-20); Calcium,Total 9.8 mg/dL (8.5-10.1); Chloride 105 mmol/L (98-107); Creatinine, Serum 0.65 mg/dL (0.55-1.02); EST Glomerular Filtration Rate 95 mL/min (>60); Est Glom Filt Rate - Afr Amer 115 mL/min (>60); Glucose 97 mg/dL (74-106); Potassium 3.9 mmol/L (3.5-5.1); Protein, Total 7.8 g/dL (6.4-8.2); Rheumatoid Factor < 10.0 IU/mL (<15); Sodium Level 137 mmol/L (136-145)
[2024-03-21 14:10] LABS: CCP IgG Antibodies 14 units (0-19)
== END | disposition home or self-care (01) ==
LOC: MTLAB 14:13
PROVIDERS: PCP Family Medicine; Referring Provider Internal Medicine Rheumatology; Visit Provider Internal Medicine Rheumatology
DX: M06.4 Inflammatory polyarthropathy (principal); N39.0 Urinary tract infection, site not specified; Z87.442 Personal history of urinary calculi; H93.13 Tinnitus, bilateral
CPT/HCPCS: 36415; 72170; 80053; 85025; 85652; 86140; 86200; 86431; 86706; 86803; 87340

== ENCOUNTER 2024-03-24 19:45 | Inpatient (IN) | payer MEDICARE, OTHER, SELFPAY ==
[2024-03-24 19:45] VITALS: BP 140/53; PULSE 79; RESP 18; TEMP 36.4; O2SAT 99; BMI 27.9
--- NOTE | 2024-03-24 19:58 | CT_ITS ---
EXAM: CT Abdomen And Pelvis W/ Contrast Injection HISTORY: Abdominal pain and bloating TECHNIQUE: Routine protocol CT abdomen pelvis. IV Contrast: IV 75mL Isovue-300 . Oral Contrast: without. Sagittal and coronal images were reconstructed. RADIATION DOSAGE (If Supplied By Facility): CTDIvol = ( 11.09 ) mGy, DLP = ( 787.69 ) mGycm Individualized dose optimization techniques were used for this CT. COMPARISON: None. LIMITATIONS: None. FINDINGS: LOWER CHEST: Lung bases are clear. LIVER: Small low-attenuation structure likely a cyst. GALLBLADDER/BILE DUCTS: Gallstones in the gallbladder. Thickened gallbladder wall. PANCREAS: Unremarkable. SPLEEN: Unremarkable. ADRENAL GLANDS: Unremarkable. KIDNEYS / URETERS: Left kidney 5.3 x 4.9 cm low-attenuation structure measures greater than water attenuation. A few small calculi in the left kidney. No hydronephrosis. BOWEL / MESENTERY: Unremarkable. No bowel obstruction. APPENDIX: Identified and normal. No evidence of acute appendicitis. PERITONEUM: No free air. No free fluid. VESSELS: Abdominal aorta is normal caliber. RETROPERITONEUM: Unremarkable. REPRODUCTIVE ORGANS: There is a 5.2 x 3.6 cm cyst in the right ovary. BLADDER: Unremarkable. ABDOMINAL WALL: Unremarkable. BONES: No acute abnormality. OTHER: None. CT/Abdomen/Pelvis W IV Cont ONLY IMPRESSION: Cholelithiasis. Thickened gallbladder wall. Ultrasound correlation may be helpful to evaluate for acute cholecystitis as clinically indicated. Left renal 5.3 cm indeterminate structure possibly a complex cyst or cystic neoplasm. Follow-up imaging with ultrasound and/or MRI recommended. Right ovarian 5.2 cm cyst. Follow-up pelvic ultrasound as clinically indicated.. Electronically Signed: Domi Cruz MD at 22:21 EDT ,
--- NOTE | 2024-03-24 19:58 | ED.VIS.GI ---
HPI HPI - GI History of Present Illness Chief Complaint: Abd Pain Narrative Narrative: 69-year-old female significant past medical history presents with abdominal pain and bloating that she has had intermittently since Monday evening. This was almost 5 days ago. She thought that after eating a salad that it did not agree with her. She complained of diffuse abdominal pain and bloating. It had been intermittent until 3:00 today where it was the worst. She felt pain in her upper back and all throughout her abdomen.. She denies any exacerbating or alleviating factors. No fevers or chills, no nausea or vomiting. She did have a small bowel movement today, but usually has 1 every day. No prior past abdominal surgeries. No exacerbating or alleviating factors. She states that it was getting more intense, but when she arrived to the emergency department or just shortly before, her symptoms resolved. [facility] Medical History (Updated 03/24/24 @ 23:40 by Aquilino Scanlon MD) History of kidney stones Frequent UTI Hyperlipemia Home Medications ?Medication ?Instructions ?Recorded ?Last Taken ?Type ascorbate calcium (vitamin C) 500 500 mg PO DAILY 04/21/20 Unknown History mg tablet chelated magnesium PO 04/21/20 Unknown History cholecalciferol (vitamin D3) 50 50 mcg PO DAILY 04/21/20 Unknown History mcg (2,000 unit) capsule k-2 PO 04/21/20 Unknown History omega-3 fatty acids 1,000 mg 1,000 mg PO DAILY 04/21/20 Unknown History capsule urinary tract essentials 2 tab PO DAILY 04/21/20 Unknown History zinc citrate-phytase 25 mg-500 mg 1 cap PO DAILY 04/21/20 Unknown History capsule glucosamine 750 [id number]-cbt 1 tab PO TID 11/29/23 Unknown History no1 625 mg-C 30 mg-bry 1 mg tablet (Ufjpoperhux-Qqmhcizajao-KMS) magnesium chloride 64 mg mg PO 11/29/23 Unknown History (magnesium chloride) tablet selenium 200 mcg capsule 200 mcg PO DAILY 11/29/23 Unknown History QUERCITIN 1 tab PO DAILY 02/23/24 Unknown History Allergy/AdvReac Type Severity Reaction Status Date / Time Latex, Natural Rubber Allergy Severe irritation Verified 03/24/24 19:46 Family History Grandmother Breast cancer Surgical History Personal history of simple renal cyst Social History Smoking Status: Never smoker alcohol intake: never substance use type: does not use what type of physical activity do you participate in: none ROS ROS ED ROS Narrative Constitutional: No fever, no chills. HEENT: No sore throat. No neck pain. No loss of vision. No rhinorrhea. Cardiovascular: No chest pain. No palpitations. No pedal edema. Respiratory: No cough, no shortness of breath. Abdominal: Positive abdominal bloating and abdominal pain. No nausea. No vomiting. No diarrhea. Last bowel movement today. Genitourinary: No dysuria. No hematuria. Musculoskeletal: No myalgias. No arthralgias. Neurologic: No headaches. No dizziness. No lightheadedness. Skin: No rash. No change in color. Psychiatric: No depression. No anxiety. EXAM Physical Exam Narrative Exam Narrative: Afebrile. Vital signs noted. HEENT: Normocephalic. Atraumatic. PERRL, EOMI. Neck soft and supple. No point tenderness or step off. Cardiovascular: Regular rate and rhythm. No murmurs, rubs, or gallops appreciated. Respiratory: No tachypnea. Lungs clear to auscultation bilaterally. Gastrointestinal: Abdomen soft, nontender, with normoactive bowel sounds. No rebound or guarding. Negative Velazquez sign. No pain over McBurney's point. Neurological: Awake. Alert. Nonfocal, nonlateralizing. Skin: No rash. Normal color. No pallor. Musculoskeletal: No pedal edema. Full range of motion extremities. Const Vital Signs: 03/24/24 19:45 03/24/24 21:45 03/24/24 22:58 Temperature 97.6 F L 98.5 F 97.4 F L Temperature Source Temporal Temporal Temporal Pulse Rate 79 90 89 Respiratory Rate 18 16 16 Blood Pressure 140/53 H 133/72 H 112/59 L Blood Pressure Mean 82 92 76 Pulse Ox 99 99 95 Oxygen Delivery Method Room Air Room Air Room Air MDM MDM MDM Narrative Medical decision making narrative: In the differential diagnosis is nonspecific abdominal pain versus diverticulitis versus obstruction. Her pain and bloating is more diffuse, but has resolved. Comprehensive workup will be pursued. I do feel she requires imaging given her age. I have low suspicion for obstruction because she has not had any prior abdominal surgeries. I reviewed her laboratory work and she does have an elevated white count of 15.3 with hemoglobin normal at 13.2, hematocrit 39.9, platelet count 395. Review of the CMP shows normal sodium of 142, potassium normal at 3.7 with chloride slightly elevated at 108. Glucose is elevated at 122 but she has normal anion gap of 6. Of significance is the rise in her total bilirubin of 1.10 with AST of 480 and ALT of 605. Alk phos is elevated at 401. Additionally, her lipase is greater than 250. Upon repeat examination, her abdomen remains soft. She does not really have tenderness in the right upper quadrant or in the epigastrium and she has not been vomiting. I do have more of a suspicion of gallstone pancreatitis. Urinalysis is negative for infection. I reviewed the radiology report of the CT of the abdomen and pelvis and there are gallstones consistent with cholelithiasis and they noted thickened gallbladder wall. Ultrasound was recommended. I did order a right upper quadrant ultrasound, and I reviewed the radiology report which comments on cholelithiasis and chronically thickened gallbladder wall, but no evidence of pericholecystic fluid. There is concern for chronic cholecystitis. Common bile duct was 7 mm. However, I had already contacted Dr. Tompkins with general surgery. He is seen and evaluated the patient in the emergency department and would like her admitted to his service on the general medical floor. Patient is to be given a dose of Zosyn in the emergency department and she will be admitted to the surgical floor under his service. Disposition is admit in stable condition. History & Record Review Discussion w/independent historian: Patient Lab Data Attestation: I reviewed the patient's lab results. Labs: Laboratory Results - last 24 hr 03/24/24 20:40 WBC 15.3 H RBC 4.51 Hgb 13.2 Hct 39.9 MCV 88.5 MCH 29.3 MCHC 33.1 RDW Std Deviation 48.7 H RDW Coeff of Fuad 14.9 H Plt Count 395 MPV 10.7 Immature Gran % (Auto) 0.300 Neut % (Auto) 86.7 H Lymph % (Auto) 7.9 L [place] % (Auto) 4.0 Eos % (Auto) 0.7 Baso % (Auto) 0.4 Absolute Neuts (auto) 13.2 H Absolute Lymphs (auto) 1.21 Nucleated RBC % 0 Sodium 142 Potassium 3.7 Chloride 108 H Carbon Dioxide 28.0 Anion Gap 6 BUN 16 Creatinine 0.81 Estim Creat Clear Calc 60.38 Est GFR (MDRD) Af Amer 90 Est GFR (MDRD) Non-Af 74 BUN/Creatinine Ratio 19.8 Glucose 122 H Calcium 9.3 Total Bilirubin 1.10 H AST 480 H ALT 605 H Alkaline Phosphatase 401 H Total Protein 7.2 Albumin 3.3 Globulin 3.9 Albumin/Globulin Ratio 0.8 L Lipase > 250 H Urine Color Yellow Urine Clarity Sl. Cloudy Urine pH 8.0 Ur Specific [place] 1.010 Urine Protein Negative Urine Glucose (UA) Normal Urine Ketones Negative Urine Occult Blood Negative Urine Nitrite Negative Urine Bilirubin Negative Urine Urobilinogen 1 H Ur Leukocyte Esterase 25 H Urine RBC 0 SEEN Urine WBC 0-5 SEEN Ur Squamous Epith Cells 0 SEEN Amorphous Sediment 2+ Urine Bacteria 1+ Urine Mucus 0 SEEN Radiography Diagnostic Testing: Clinical Impression(s) from Imaging Studies Abdomen/Pelvis CT 03/24/24 19:58 IMPRESSION: Cholelithiasis. Thickened gallbladder wall. Ultrasound correlation may be helpful to evaluate for acute cholecystitis as clinically indicated. Left renal 5.3 cm indeterminate structure possibly a complex cyst or cystic neoplasm. Follow-up imaging with ultrasound and/or MRI recommended. Right ovarian 5.2 cm cyst. Follow-up pelvic ultrasound as clinically indicated.. Electronically Signed: Domi Cruz MD at 22:21 EDT Reading Location ID and State: [facility] / [place] Tel , Service support , Gallbladder Ultrasound 03/24/24 21:23 IMPRESSION: Cholelithiasis. Thickened gallbladder wall may be due to contraction and/or chronic cholecystitis. No specific findings of acute cholecystitis. Fatty infiltration of liver. Electronically Signed: Domi Cruz MD at 23:19 EDT Reading Location ID and State: [facility] / [place] Tel , Service support , Management Discussion w/another healthcare provider: Compensation Administrator (Dr. Kalin Tompkins, general surgery) Discharge Plan Dx/Rx/DC Orders Clinical Impression: Gallstone pancreatitis, Cholecystitis, chronic, Abdominal pain Disposition Disposition: Acute [facility]
[2024-03-24 20:45] LABS: Mucous, Urine 0 SEEN /hpf (<or=2+); Red Blood Cells-Urine 0 SEEN /hpf (0-5); Squamous Epithelial Cells - UA 0 SEEN /hpf (5-10)
[2024-03-24 20:47] LABS: Absolute Lymphocyte Count 1.21 X10^3/uL (0.83-4.51); Absolute Neutrophil Count 13.2 X10^3/uL (2.0-7.7); Basophil# 0.06 X10^3/uL; Basophil% 0.4 % (0-1); Eosinophil# 0.11 X10^3/uL; Eosinophils% 0.7 % (0-5); Hematocrit 39.9 % (37-47); Hemoglobin 13.2 g/dL (12.0-15.0); Lymphocyte # 1.21 X10^3/ul (0.83-4.51); Lymphocyte % 7.9 % (19-41); Mean Corp Hgb Conc 33.1 g/dL (32-36); Mean Corpuscular Hgb 29.3 pg (27.0-32.0); Mean Corpuscular Volume 88.5 fL (81-99); Mean Platelet Vol. 10.7 fl (6.2-12.0); Monocyte# 0.61 X10^3/uL; NRBC Flagged by Analyzer 0 % (0-5); Neutrophil # 13.22 X10^3/uL (2.7-7.7); Neutrophil % 86.7 % (47-70); Platelet Count 395 K/mm3 (150-450); RBC Distribution Width CV 14.9 % (11.6-14.6); RBC Distribution Width SD 48.7 fl (35.1-43.9); Red Blood Count 4.51 M/mm3 (4.2-5.4); White Blood Count 15.3 K/mm3 (4.4-11.0)
[2024-03-24 20:49] LABS: Color, Urine Yellow (Yellow); Glucose, Dipstick Normal (Normal); Ketone-Dipstick Negative (Negative); Leukocyte Esterase-Dipstick 25 /ul (Negative); Nitrite-Dipstick Negative (Negative); Occult Blood-Urine Negative /ul (Negative); Protein-Dipstick Negative (Negative); Urine Bilirubin Dipstick Negative (Negative); Urine Clarity Sl. Cloudy (Clear); Urine Urobilinogen 1 mg/dl (Normal)
[2024-03-24] MEDS: 0.9% Normal Saline (1000mL) 1,000 ML 999 ML IV (20:51)
[2024-03-24 20:58] LABS: Amorphous Sediment 2+; Bacteria 1+ /hpf (None Seen); White Blood Cells 0-5 SEEN /hpf (0-5)
[2024-03-24 21:16] LABS: ALB/GLOB Ratio 0.8 RATIO (0.9-2.4); AST(SGOT) 480 U/L (15-37); Alanine Aminotransfer ALT/SGPT 605 U/L (13-56); Albumin, Serum 3.3 g/dL (3.2-5.0); Alkaline Phosphatase 401 U/L (45-117); Anion Gap 6 (5-15); BUN 16 mg/dL (7-18); BUN/Creat Ratio 19.8 RATIO (10-20); Calcium,Total 9.3 mg/dL (8.5-10.1); Chloride 108 mmol/L (98-107); Creatinine, Serum 0.81 mg/dL (0.55-1.02); EST Glomerular Filtration Rate 74 mL/min (>60); Est Glom Filt Rate - Afr Amer 90 mL/min (>60); Estimated Creatinine Clearance 60.38 ml/min; Globulin 3.9 g/dL (2.2-4.2); Glucose 122 mg/dL (74-106); Lipase > 250 U/L (13-75); Potassium 3.7 mmol/L (3.5-5.1); Protein, Total 7.2 g/dL (6.4-8.2); Sodium Level 142 mmol/L (136-145)
--- NOTE | 2024-03-24 21:23 | US_ITS ---
INDICATION: Elevated Lipase and LFTs, Pain EXAMINATION: Ultrasound US Abdomen Limited (quadrant) TECHNIQUE: Padron scale and color doppler imaging was performed of the right upper quadrant. COMPARISON: CT abdomen and pelvis earlier same day FINDINGS: LIVER: 17.5 cm in length. Increased echogenicity. GALLBLADDER Size: Appears contracted. Stones: Multiple. Wall thickness: Thickened. 6 mm. Pericholecystic fluid: None. Sonographic Velazquez sign: Negative. EXTRAHEPATIC BILE DUCTS: Common bile duct 7 mm not dilated. PANCREAS: Visualized portions unremarkable. RIGHT KIDNEY: No hydronephrosis. ASCITES: None. US/Gallbladder IMPRESSION: Cholelithiasis. Thickened gallbladder wall may be due to contraction and/or chronic cholecystitis. No specific findings of acute cholecystitis. Fatty infiltration of liver. Electronically Signed: Domi Cruz MD at 23:19 EDT ,
[2024-03-24 21:45] VITALS: BP 133/72; PULSE 90; RESP 16; TEMP 36.9; O2SAT 99
[2024-03-24 22:58] VITALS: BP 112/59; PULSE 89; RESP 16; TEMP 36.3; O2SAT 95
[2024-03-24 23:47] VITALS: BP 110/47; PULSE 86; RESP 16; TEMP 36.7; O2SAT 98
--- NOTE | 2024-03-24 23:48 | HP.PCM_ITS ---
HPI - General General Date of Admission: 03/24/24 Chief Complaint: Abdominal pain HPI Narrative OK BUNN, is a 69 F who presents to [facility] with acute onset abdominal pain beginning this afternoon about 3 PM. She states that this abdominal pain was associated with some bloating in a diffuse distribution and radiation to her back. She notes that this pain first presented approximately 4 days prior and she had suspected she had an element of food poisoning as she attempted to eat a leftover [employer] salad. Today's pain, however followed a picnic meal inclusive of potato casserole, hamburger, and Oreo dessert about 2 hours after ingestion. She also reports that the pain spontaneously dissipated just before her arrival and has not recurred since her arrival. She does at this point denies any appetite apart from an interest in a leonor raymon if she were so permitted. Patient's ED workup notable for leukocytosis per CBC with white count of 15,000 and left shift. CMP shows transaminitis, mild elevation of bilirubin, and elevation of lipase. CT imaging of the abdomen pelvis was obtained showing thickened gallbladder wall with cholelithiasis. Reflex right upper quadrant ultrasound was performed demonstrating thickened gallbladder wall but a CBD of normal diameter given patient's age. Patient has minimal past medical history inclusive of a single kidney stone, questionable high cholesterol, and recurrent urinary tract infections. She also shares that she has had renal cyst drained on 2 separate occasions, however, she is unable to recall many details of these procedures. [facility] Medical History (Updated 03/24/24 @ 23:40 by Aquilino Scanlon MD) History of kidney stones Frequent UTI Hyperlipemia Home Medications ?Medication ?Instructions ?Recorded ?Last Taken ?Type ascorbate calcium (vitamin C) 500 500 mg PO DAILY 04/21/20 Unknown History mg tablet chelated magnesium PO 04/21/20 Unknown History cholecalciferol (vitamin D3) 50 50 mcg PO DAILY 04/21/20 Unknown History mcg (2,000 unit) capsule k-2 PO 04/21/20 Unknown History omega-3 fatty acids 1,000 mg 1,000 mg PO DAILY 04/21/20 Unknown History capsule urinary tract essentials 2 tab PO DAILY 04/21/20 Unknown History zinc citrate-phytase 25 mg-500 mg 1 cap PO DAILY 04/21/20 Unknown History capsule glucosamine 750 [id number]-qdgxffdnayl-ybz 1 tab PO TID 11/29/23 Unknown History no1 625 mg-C 30 mg-bry 1 mg tablet (Moyepvmknan-Kctidwdchsn-SBQ) magnesium chloride 64 mg mg PO 11/29/23 Unknown History (magnesium chloride) tablet selenium 200 mcg capsule 200 mcg PO DAILY 11/29/23 Unknown History QUERCITIN 1 tab PO DAILY 02/23/24 Unknown History Allergy/AdvReac Type Severity Reaction Status Date / Time Latex, Natural Rubber Allergy Severe irritation Verified 03/24/24 19:46 Family History Grandmother Breast cancer Surgical History Personal history of simple renal cyst Social History Smoking Status: Never smoker alcohol intake: never substance use type: does not use what type of physical activity do you participate in: none ROS Constitutional Constitutional: Reports anorexia Gastrointestinal Gastrointestinal: Reports abdominal pain and nausea; Denies vomiting Vital Signs Vital Signs Vital Signs: 03/24/24 19:45 03/24/24 21:45 03/24/24 22:58 Temperature 97.6 F L 98.5 F 97.4 F L Temperature Source Temporal Temporal Temporal Pulse Rate 79 90 89 Respiratory Rate 18 16 16 Blood Pressure 140/53 H 133/72 H 112/59 L Blood Pressure Mean 82 92 76 Pulse Ox 99 99 95 Oxygen Delivery Method Room Air Room Air Room Air 03/24/24 23:47 Temperature 98.1 F Temperature Source Pulse Rate 86 Respiratory Rate 16 Blood Pressure 110/47 L Blood Pressure Mean 68 Pulse Ox 98 Oxygen Delivery Method Weight Weight: 157 lb 10.088 oz Body Mass Index (BMI) 27.9 Physical Exam Const alert, oriented x3, no apparent distress and well nourished General Appearance: cooperative Resp normal respiratory effort GI GI Narrative: Normal habitus, no visible scars, no visible herniations, nondistended, soft, tender to palpation mildly in the epigastrium as well as the right upper quadrant. There is a positive Velazquez sign. Results Lab / Micro Data 03/24/24 20:40 03/24/24 20:40 Labs: Laboratory Results - last 24 hr 03/24/24 20:40: WBC 15.3 H, RBC 4.51, Hgb 13.2, Hct 39.9, MCV 88.5, MCH 29.3, MCHC 33.1, RDW Std Deviation 48.7 H, RDW Coeff of Fuad 14.9 H, Plt Count 395, MPV 10.7, Immature Gran % (Auto) 0.300, Neut % (Auto) 86.7 H, Lymph % (Auto) 7.9 L, [place] % (Auto) 4.0, Eos % (Auto) 0.7, Baso % (Auto) 0.4, Absolute Neuts (auto) 13.2 H, Absolute Lymphs (auto) 1.21, Nucleated RBC % 0, Sodium 142, Potassium 3.7, Chloride 108 H, Carbon Dioxide 28.0, Anion Gap 6, BUN 16, Creatinine 0.81, Estim Creat Clear Calc 60.38, Est GFR (MDRD) Af Amer 90, Est GFR (MDRD) Non-Af 74, BUN/Creatinine Ratio 19.8, Glucose 122 H, Calcium 9.3, Total Bilirubin 1.10 H, AST 480 H, ALT 605 H, Alkaline Phosphatase 401 H, Total Protein 7.2, Albumin 3.3, Globulin 3.9, Albumin/Globulin Ratio 0.8 L, Lipase > 250 H, Urine Color Yellow, Urine Clarity Sl. Cloudy, Urine pH 8.0, Ur Specific [place] 1.010, Urine Protein Negative, Urine Glucose (UA) Normal, Urine Ketones Negative, Urine Occult Blood Negative, Urine Nitrite Negative, Urine Bilirubin Negative, Urine Urobilinogen 1 H, Ur Leukocyte Esterase 25 H, Urine RBC 0 SEEN, Urine WBC 0-5 SEEN, Ur Squamous Epith Cells 0 SEEN, Amorphous Sediment 2+, Urine Bacteria 1+, Urine Mucus 0 SEEN Imaging Radiology Impression Abdomen/Pelvis CT 03/24/24 19:58 IMPRESSION: Cholelithiasis. Thickened gallbladder wall. Ultrasound correlation may be helpful to evaluate for acute cholecystitis as clinically indicated. Left renal 5.3 cm indeterminate structure possibly a complex cyst or cystic neoplasm. Follow-up imaging with ultrasound and/or MRI recommended. Right ovarian 5.2 cm cyst. Follow-up pelvic ultrasound as clinically indicated.. Electronically Signed: Domi Cruz MD at 22:21 EDT , Gallbladder Ultrasound 03/24/24 21:23 IMPRESSION: Cholelithiasis. Thickened gallbladder wall may be due to contraction and/or chronic cholecystitis. No specific findings of acute cholecystitis. Fatty infiltration of liver. Electronically Signed: Domi Cruz MD at 23:19 EDT , Assessment & Plan Assessment/Plan (1) Gallstone pancreatitis: PLAN: Patient is a 69-year-old female who presents with several day history of acute onset abdominal pain with radiation to the back. Interestingly pain remitted spontaneously just prior to patient's arrival. Still, her ED workup is remarkable for leukocytosis, transaminitis, elevated lipase, and imaging evidence of cholecystitis. In the ED, patient's exam confirms cholecystitis and labs are consistent with a diagnosis of gallstone pancreatitis. I held a lengthy conversation with patient and her using hand drawings to detail the relevant anatomy about patient's diagnosis. They expressed understanding of the details and I then proceeded with offering recommendation for treatment?to include laparoscopic cholecystectomy with intraoperative cholangiogram. I shared that if the latter were positive this would indicate patient would require a subsequent procedure with ERCP to clear the common bile duct. Patient acknowledged understanding of this as well, however, she probably shared with me that she has plans for a big vacation with extended family on April 13 in [place]. To this I shared that there was no way of knowing before hand when her pathology may occur and that I highly recommended proceeding now to avoid recurrence of her pancreatitis and worsening of her clinical state. I also did share with her and her the expected recovery time course and the need to abstain from lengthy travel are possible for the first 14 days after surgery given patient's elevated thromboembolism risk. After patient confirmed agreement we will plan for the following: ? N.p.o. ? IV fluids at 150/h given diagnosis of pancreatitis ? Empiric IV antibiotic therapy given diagnosis of cholecystitis ? Patient be consented for lap umer with intraoperative cholangiogram ? Plan for the above procedure tomorrow pending repeat labs in the a.m. and/or availability Kalin Tompkins MD General Surgery Endocrine Surgery Pager: [facility] [address] [place] [address], [facility], [address] [place] [address] Office: [phone] Charges/Coding Visit Charges Inpatient E&M: 73674 Init Hosp L2
[2024-03-25] VITALS (17 sets, daily range): BP systolic 96–137; BP diastolic 49–79; PULSE 70–90; RESP 16–18; TEMP 36.4–37.7; O2SAT 92–98; BMI 28.0
[2024-03-25] MEDS: 0.9% Normal Saline (1000mL) 1,000 ML 150 ML IV ×2 (00:44→06:46)
[2024-03-25] MEDS: Piperacil/Tazobactam 3.375 GM in 0.9% Normal Saline (50mL MB+) 50 ML IV ×2 (00:57→06:46)
--- NOTE | 2024-03-25 05:00 | EKG12_ITS ---
Test Reason : AM EKG Blood Pressure : / mmHG Vent. Rate : 084 BPM Atrial Rate : 084 BPM P-R Int : 158 ms QRS Dur : 086 ms QT Int : 368 ms P-R-T Axes : 055 034 054 degrees QTc Int : 434 ms Normal sinus rhythm Normal ECG No previous ECGs available Confirmed by CECILIA KING, ALANA ([id number]), electronic news gathering editor SEEMA CLAUDIO ([id number]) on 03/26/2024 9:29:08 AM Referred By: DESIRAE Confirmed By:ALANA BROOKS MD
[2024-03-25 07:38] LABS: Absolute Lymphocyte Count 0.67 X10^3/uL (0.83-4.51); Absolute Neutrophil Count 10.2 X10^3/uL (2.0-7.7); Basophil# 0.02 X10^3/uL; Basophil% 0.2 % (0-1); Eosinophil# 0.03 X10^3/uL; Eosinophils% 0.3 % (0-5); Hematocrit 36.6 % (37-47); Lymphocyte # 0.67 X10^3/ul (0.83-4.51); Lymphocyte % 5.7 % (19-41); Mean Corp Hgb Conc 32.8 g/dL (32-36); Mean Corpuscular Hgb 28.8 pg (27.0-32.0); Mean Platelet Vol. 10.9 fl (6.2-12.0); Monocyte# 0.79 X10^3/uL; Monocyte% 6.7 % (0-10); NRBC Flagged by Analyzer 0 % (0-5); Neutrophil # 10.18 X10^3/uL (2.7-7.7); Neutrophil % 86.6 % (47-70); Platelet Count 342 K/mm3 (150-450); RBC Distribution Width CV 15.1 % (11.6-14.6); RBC Distribution Width SD 48.8 fl (35.1-43.9); Red Blood Count 4.16 M/mm3 (4.2-5.4); White Blood Count 11.8 K/mm3 (4.4-11.0)
[2024-03-25 07:46] LABS: ALB/GLOB Ratio 0.8 RATIO (0.9-2.4); AST(SGOT) 615 U/L (15-37); Alanine Aminotransfer ALT/SGPT 804 U/L (13-56); Albumin, Serum 2.9 g/dL (3.2-5.0); Alkaline Phosphatase 470 U/L (45-117); Anion Gap 6 (5-15); BUN 12 mg/dL (7-18); BUN/Creat Ratio 20.1 RATIO (10-20); Calcium,Total 8.8 mg/dL (8.5-10.1); Chloride 112 mmol/L (98-107); EST Glomerular Filtration Rate 106 mL/min (>60); Est Glom Filt Rate - Afr Amer 128 mL/min (>60); Estimated Creatinine Clearance 61.34 ml/min; Globulin 3.8 g/dL (2.2-4.2); Glucose 129 mg/dL (74-106); Lipase 53 U/L (13-75); Magnesium 2.3 mg/dL (1.6-2.6); Phosphorus 2.4 mg/dL (2.5-4.9); Potassium 3.8 mmol/L (3.5-5.1); Protein, Total 6.7 g/dL (6.4-8.2); Sodium Level 139 mmol/L (136-145)
--- NOTE | 2024-03-25 08:19 | PN.SURG_ITS ---
Subjective Subjective Patient seen and examined during AM rounds. She is found sitting upright in bed and states that overall she is feeling well this morning. She denies any recurrence of her abdominal pain. She confirms that she is urinating frequently but it is somewhat dark in character. Objective Data Objective Data Vital Signs: Vital Signs Temp Pulse Resp BP Pulse Ox O2 Del Method 98.6 F 84 18 121/61 H 96 Room Air 03/25/24 05:24 03/25/24 05:24 03/25/24 05:24 03/25/24 05:24 03/25/24 05:24 03/25/24 05:24 Oxygen Delivery Method Room Air Weight: 158 lb 11.725 oz Body Mass Index (BMI) 28.0 Intake & Output: Intake and Output for Last 24 Hours 03/23/24 03/24/24 03/25/24 23:59 23:59 23:59 Intake Total 1000 / 1000 955 / 955 Output Total 300 / 300 Balance 1000 / 1000 655 / 655 Lab / Micro Data 03/25/24 07:05 03/25/24 07:05 Labs: Laboratory Results - last 24 hr 03/24/24 20:40: WBC 15.3 H, RBC 4.51, Hgb 13.2, Hct 39.9, MCV 88.5, MCH 29.3, MCHC 33.1, RDW Std Deviation 48.7 H, RDW Coeff of Fuad 14.9 H, Plt Count 395, MPV 10.7, Immature Gran % (Auto) 0.300, Neut % (Auto) 86.7 H, Lymph % (Auto) 7.9 L, [place] % (Auto) 4.0, Eos % (Auto) 0.7, Baso % (Auto) 0.4, Absolute Neuts (auto) 13.2 H, Absolute Lymphs (auto) 1.21, Nucleated RBC % 0, Sodium 142, Potassium 3.7, Chloride 108 H, Carbon Dioxide 28.0, Anion Gap 6, BUN 16, Creatinine 0.81, Estim Creat Clear Calc 60.38, Est GFR (MDRD) Af Amer 90, Est GFR (MDRD) Non-Af 74, BUN/Creatinine Ratio 19.8, Glucose 122 H, Calcium 9.3, Total Bilirubin 1.10 H, AST 480 H, ALT 605 H, Alkaline Phosphatase 401 H, Total Protein 7.2, Albumin 3.3, Globulin 3.9, Albumin/Globulin Ratio 0.8 L, Lipase > 250 H, Urine Color Yellow, Urine Clarity Sl. Cloudy, Urine pH 8.0, Ur Specific Gipsy 1.010, Urine Protein Negative, Urine Glucose (UA) Normal, Urine Ketones Negative, Urine Occult Blood Negative, Urine Nitrite Negative, Urine Bilirubin Negative, Urine Urobilinogen 1 H, Ur Leukocyte Esterase 25 H, Urine RBC 0 SEEN, Urine WBC 0-5 SEEN, Ur Squamous Epith Cells 0 SEEN, Amorphous Sediment 2+, Urine Bacteria 1+, Urine Mucus 0 SEEN 03/25/24 07:05: WBC 11.8 H, RBC 4.16 L, Hgb 12.0, Hct 36.6 L, MCV 88.0, MCH 28.8, MCHC 32.8, RDW Std Deviation 48.8 H, RDW Coeff of Fuad 15.1 H, Plt Count 342, MPV 10.9, Immature Gran % (Auto) 0.500, Neut % (Auto) 86.6 H, Lymph % (Auto) 5.7 L, [place] % (Auto) 6.7, Eos % (Auto) 0.3, Baso % (Auto) 0.2, Absolute Neuts (auto) 10.2 H, Absolute Lymphs (auto) 0.67 L, Nucleated RBC % 0, Sodium 139, Potassium 3.8, Chloride 112 H, Carbon Dioxide 21.0, Anion Gap 6, BUN 12, Creatinine 0.60, Estim Creat Clear Calc 61.34, Est GFR (MDRD) Af Amer 128, Est GFR (MDRD) Non-Af 106, BUN/Creatinine Ratio 20.1 H, Glucose 129 H, Calcium 8.8, Phosphorus 2.4 L, Magnesium 2.3, Total Bilirubin 2.60 H, AST 615 H, ALT 804 H, A lkaline Phosphatase 470 H, Total Protein 6.7, Albumin 2.9 L, Globulin 3.8, A lbumin/Globulin Ratio 0.8 L, Lipase 53 Radiography Diagnostic Testing: Radiology Impression Abdomen/Pelvis CT 03/24/24 19:58 IMPRESSION: Cholelithiasis. Thickened gallbladder wall. Ultrasound correlation may be helpful to evaluate for acute cholecystitis as clinically indicated. Left renal 5.3 cm indeterminate structure possibly a complex cyst or cystic neoplasm. Follow-up imaging with ultrasound and/or MRI recommended. Right ovarian 5.2 cm cyst. Follow-up pelvic ultrasound as clinically indicated.. Electronically Signed: Domi Cruz MD at 22:21 EDT , Gallbladder Ultrasound 03/24/24 21:23 IMPRESSION: Cholelithiasis. Thickened gallbladder wall may be due to contraction and/or chronic cholecystitis. No specific findings of acute cholecystitis. Fatty infiltration of liver. Electronically Signed: Domi Cruz MD at 23:19 EDT , Physical Exam Const oriented x3 GI GI Narrative: Nondistended, soft, minimally tender to right upper quadrant. Apparent resolution of tenderness previously identified in the epigastrium with palpation. Negative Velazquez sign. Assessment & Plan Assessment/Plan (1) Gallstone pancreatitis: PLAN: Patient is a 69-year-old female who presents with several day history of acute onset abdominal pain with radiation to the back. Patient appears to have resolved pancreatitis symptoms and lipase, concurrently, has trended to normal. Interestingly, patient's other LFTs and bilirubin are further elevated. This is highly suggestive of a persistent common bile duct obstruction and we will plan to evaluate further with cholangiogram later today. Patient is pending lap umer with intraoperative cholangiography. She is appropriately n.p.o. and consent has been obtained. Kalin Tompkins MD General Surgery Endocrine Surgery Pager: [facility] [address] [place] [address], [facility], [address] [place] [address] Office: [phone] Charges/Coding Visit Charges Inpatient E&M: 65518 Subs Hosp L2
[2024-03-25] MEDS: 0.9% Normal Saline (1000mL) 1,000 ML 15 ML IV (10:35)
--- NOTE | 2024-03-25 11:00 | GALL_PTH ---
PATIENT: OK BUNN LOC: MS3 U#:[id number] AGE/SX: 69/F ROOM: [facility] RE03/24/[address]: Dr. Kalin Tompkins MD : 1955 BED: 1 DIS: 03/26/2024 SPEC #: [id number] RECD: 03/25/24 16:47 STATUS: BENEDICTO BRAXTON #: [id number] YANCY: 03/25/24 11:[address]: Kalin Tompkins DEPT: SURGICAL PATHOLOGY RECD BY: Erin Crane ENTERED: 03/26/24 09:55 SP TYPE: DENIA PAYTON DR: Dr. Daniel Reddy, DO Tissues: Gallbladder, NOS Procedures: Surgery Specimen Level III HEADER OPERATION: Laparoscopic, cholecystectomy with IOC PRE-OP DIAGNOSIS: Gallstone pancreatitis TISSUE SUBMITTED: Gallbladder and contents MICROSCOPIC DIAGNOSIS Gallbladder, cholecystectomy: Acute and chronic cholecystitis and cholelithiasis. AM/mr 03/27/2024 MICROSCOPIC DESCRIPTION Slides are reviewed. GROSS DESCRIPTION Received is one container labeled with the patient's name and designated gallbladder. The specimen consists of a gallbladder measuring 7.5 x 3.0 x 2.0 cm. The external surface is smooth and glistening. Focally, it is granular, hemorrhagic and contains cautery artifact. The lumen of the gallbladder contains yellow-green mucoid bile and multiple black calculi ranging in size from 0.3 to 0.7 cm in greatest dimension. The mucosa is bile-stained and without any mass lesions. The gallbladder wall averages 0.4 cm in thickness and is free of mass lesions. Bull Rider sections of the gallbladder and the cystic duct at margin of resection are submitted in one cassette. / AM: 03/26/2024 TC:2 [facility]: [id number]
--- NOTE | 2024-03-25 11:08 | PRE.ANES_ITS ---
ASA Classification* ASA Classification ASA Classification: 2 Assessment & Plan Anesthesia* Anesthesia Assessment Anesthesia Assessment: Discussed sedation and/or anesthesia options, risks, benefits, and alternatives with patient/parents/legal guardian/POA. Questions invited. The patient/parents/legal guardian/POA seems to understand and agrees to proceed with anesthesia plan. Reviewed the physical assessment, medical history, allergy history and patient home medications list prior to surgery/procedure/anesthetic and documented any changes. Performed airway and anesthesia risk assessments. Anesthesia Type Anesthesia Type: General Pre-Assessment Diagnosis/Proposed Procedure Planned Operative Procedure(s): Laparoscopic cholecystectomy Anesthesia History Anesthesia History - train engineer: Anesthesia History - train engineer Hx Hospitalization Any Problems With Anesthesia No 03/25/24 00:40 Cholinesterase deficiency No 03/25/24 00:40 You/Your Family Experience No 03/25/24 00:40 fever (hyperthermia) with Relationship Recent Exposure to Contagious No 03/25/24 00:40 Disease Does patient have nerve No 03/25/24 00:40 stimulator Patient instructed to have No 03/25/24 00:40 device shut off --Does patient have Pacemaker or ICD? When Was Last Pacemaker Check QUESTION #4 FULL TEXT: You/Your Family Experience fever (hyperthermia) with Anesthesia Last Oral Intake Last Oral intake: Last Oral Intake NPO since Meds taken in AM with sips of water? Meds patient instructed to take am of surgery PONV PONV - train engineer: PONV - train engineer Female HX of Motion Sickness HX of N/V After Surgery Non-Smoker Duration of Surgery greater than 60 minutes Number of Risk Factors PONV Score Any additional information?: Yes Female: Yes HX of Motion Sickness: No HX of N/V After Surgery: No Non-Smoker: Yes Duration of Surgery greater than 60 minutes: Yes Number of Risk Factors: 3 PONV Score: Moderate Risk Height & Weight Height & Weight: Anesthesia: Height & Weight Height 5 ft 3 in 03/25/24 00:06 Weight: 72 kg 03/25/24 00:06 Body Mass Index (BMI) 28.0 03/25/24 00:06 Respiratory Assessment Respiratory Assessment - train engineer: Respiratory Tract Infection Hx - train engineer Hx Respiratory Tract Infection No 03/25/24 00:40 STOP Sleep Apnea STOP Sleep Apnea - train engineer: STOP Sleep Apnea - train engineer Hx Hypertension No 03/25/24 00:06 Hx Sleep Apnea No 03/25/24 00:06 CPAP BIPAP Do you snore loudly (louder No 03/25/24 00:06 than talking or can be heard Do you often feel tired/ No 03/25/24 00:06 fatigued/ sleepy during daytime? Has anyone observed you stop No 03/25/24 00:06 breathing during sleep? STOP Results Negative 03/25/24 00:06 QUESTION #5 FULL TEXT : Do you snore loudly (louder than talking or can be heard through closed doors)? Tobacco Use History Tobacco Use History - train engineer: Tobacco Use History - train engineer Tobacco Use Smoking Status Never smoker 03/25/24 00:06 Hx Tobacco Use No 03/25/24 00:06 Years Smoking Packs Smoked per Day Smoking Cessation Date was within the last 15 years Hx Smoking Cessation Date Hx Smoking Cessation Counseling Hematologic Medial History Hematologic Hx - train engineer: Hematologic Medical Hx - invasive manager Hx of Blood Transfusion No 03/25/24 00:06 Hx of Transfusion in last 3 No 03/25/24 00:06 Months Date of Last Transfusion (if within last 3 months) Ever experience any problems No 03/25/24 00:06 with transfusion(s)? Specify any problems Hx of Preganancy in last 3 N/A 03/25/24 00:06 Months Nurse Filling Out Transfusion [email or web address] 03/25/24 00:06 & Questions: Date: 03/25/24 03/25/24 00:06 Time: 00:37 03/25/24 00:06 Patient unable to answer at this time (ie. confused, unrespo /Reproduction History /Reproductive History - train engineer: /Reproductive Hx- train engineer Hx Now No 03/25/24 00:40 Gestational Age (in weeks): EDC: Hx Hx Para Hx Section SAB No 03/25/24 00:40 Active Medications Active Medications: Current Medications Generic Name Dose Route Start Last Admin Trade Name Freq PRN Reason Stop Dose Admin Acetaminophen 500 mg 03/24/24 23:44 Acetaminophen 500 Mg Tablet PO Q6H PRN PRN Pain Score 1-10 Hydromorphone HCl 0.5 mg 03/24/24 23:44 Hydromorphone 0.5 Mg/0.5 Ml Syringe IV Q4H PRN PRN Pain Score 6-10 Sodium Chloride 1,000 mls @ 150 mls/hr 03/24/24 23:45 03/25/24 06:46 IV 150 mls/hr .Q6H40M TONI Administration Piperacillin Sod/Tazobactam 50 mls @ 12.5 mls/hr 03/25/24 06:00 03/25/24 10:14 Sod 3.375 gm/ Sodium Chloride IV Infused Q8 TONI Infusion Sodium Chloride 1,000 mls @ 15 mls/hr 03/25/24 10:35 03/25/24 10:35 IV 15 mls/hr .Q48H TONI Administration Ondansetron HCl 4 mg 03/24/24 23:44 Ondansetron 4 Mg/2 Ml Vial IV Q6H PRN PRN NAUSEA/VOMITING Anesthesia Focused Assessment* Temperature: 98.8 F Pulse Rate: 81 Blood Pressure: 105/55 Respiratory Rate: 18 Pulse Ox: 98 Airway Assessment Mouth opens: >3 cm Mallampati Score: II Focused Labs Anesthesia Preop lab: CBC WBC 11.8 K/mm3 (4.4-11.0) H 03/25/24 07:05 RBC 4.16 M/mm3 (4.2-5.4) L 03/25/24 07:05 Hgb 12.0 g/dL (12.0-15.0) 03/25/24 07:05 Hct 36.6 % (37-47) L 03/25/24 07:05 Plt Count 342 K/mm3 (150-450) 03/25/24 07:05 CHEMISTRY Potassium 3.8 mmol/L (3.5-5.1) 03/25/24 07:05 Sodium 139 mmol/L (136-145) 03/25/24 07:05 Magnesium 2.3 mg/dL (1.6-2.6) 03/25/24 07:05 Phosphorus 2.4 mg/dL (2.5-4.9) L 03/25/24 07:05 BUN 12 mg/dL (7-18) 03/25/24 07:05 Creatinine 0.60 mg/dL (0.55-1.02) 03/25/24 07:05 Glucose 129 mg/dL (74-106) H 03/25/24 07:05 COAG Review of Systems (Anesthesia) ROS Narrative System reviewed and no additional complaints, except as documented. [facility] Medical History History of kidney stones Frequent UTI Hyperlipemia Home Medications ?Medication ?Instructions ?Recorded ?Last Taken ?Type ascorbate calcium (vitamin C) 500 500 mg PO DAILY 04/21/20 Unknown History mg tablet chelated magnesium PO 04/21/20 Unknown History cholecalciferol (vitamin D3) 50 50 mcg PO DAILY 04/21/20 Unknown History mcg (2,000 unit) capsule k-2 PO 04/21/20 Unknown History omega-3 fatty acids 1,000 mg 1,000 mg PO DAILY 04/21/20 Unknown History capsule urinary tract essentials 2 tab PO DAILY 04/21/20 Unknown History zinc citrate-phytase 25 mg-500 mg 1 cap PO DAILY 04/21/20 Unknown History capsule glucosamine 750 yk-hyxsgdiyfvn-ehq 1 tab PO TID 11/29/23 Unknown History no1 625 mg-C 30 mg-bry 1 mg tablet (Drwuvrychvw-Dxrnptvkgaf-MUL) magnesium chloride 64 mg mg PO 11/29/23 Unknown History (magnesium chloride) tablet selenium 200 mcg capsule 200 mcg PO DAILY 11/29/23 Unknown History QUERCITIN 1 tab PO DAILY 02/23/24 Unknown History Allergy/AdvReac Type Severity Reaction Status Date / Time Latex, Natural Rubber Allergy Severe irritation Verified 03/24/24 19:46 Family History Grandmother Breast cancer Surgical History Personal history of simple renal cyst Social History Smoking Status: Never smoker alcohol intake: never substance use type: does not use what type of physical activity do you participate in: none Addt'l Information Additional Findings: EKG shows normal sinus rhythm
[2024-03-25] MEDS: Bupiv/Epi 0.25% 30 ML Vial (11:53)
--- NOTE | 2024-03-25 11:55 | RAD_ITS ---
STUDY: INTRAOPERATIVE CHOLANGIOGRAM. REASON FOR EXAM: Female, 69 years old. LAP JOHN FLUOROSCOPY TIME (if supplied): ( 54 seconds ) minutes/seconds. 34.64 mGy. TECHNIQUE: An intraoperative cholangiogram was performed by the surgeon. Imaging was performed. COMPARISON: None. FINDINGS: The intra and extrahepatic biliary ducts are unremarkable. There is free flow of contrast into the duodenum. No intraluminal filling defect is seen. RAD/Cholangiogram/ O R,Initial IMPRESSION: Unremarkable intraoperative cholangiogram. Electronically Signed: Brendan Alonso MD at 7:23 EDT ,
--- NOTE | 2024-03-25 13:26 | PCM.OPRPT ---
Report of Operation Date of Procedure: 03/25/24 Pre-Operative Diagnosis: 1. Gallstone pancreatitis 2. Acute on chronic cholecystitis 3. Suspicion for choledocholithiasis Post-Operative Diagnosis: Same Surgery/Procedure Performed:: Laparoscopic cholecystectomy with intraoperative cholangiogram Description of Surgical Findings:: ? Normal configuration of gallbladder anatomy with dilated cystic and extrahepatic biliary tree ? No filling defect noticed on cholangiogram and there was normal antegrade flow through the ampulla Vater Surgeon: Kalin Tompkins network security administrator: Noreen Wells Type of Anesthesia: General/Supplemental Anesthesiologist: Shlomo Yeager Specimen's removed: Gallbladder Estimated Blood Loss (mL): 15 Description of Procedure: After proper identification in the preoperative holding area the patient was brought to the operating room where she was positioned supine on the operating room table. Preoperatively SCDs were connected (and antibiotics had been previously administered on the floor). General anesthesia was then induced. Patient's abdomen was prepped and draped in usual sterile fashion. A formal timeout was conducted to confirm both patient and the procedure. Procedure was begun with a supraumbilical incision which was extended deeply down to the level of the fascia. The fascia was elevated and incised, as well as the peritoneum. A finger sweep was performed to ensure there were no underlying adhesions and a 12 mm balloon trocar was inserted. Pneumoperitoneum was established at 15 mmHg. Three additional trocars (all 5 mm) were placed in the epigastrium and in the right upper quadrant. Inspection of the peritoneum revealed no inadvertent injury to the viscera below. The gallbladder was visualized with evidence of acute and chronic inflammation. The gallbladder fundus was then grasped and elevated cephalad. Then, using careful dissection the peritoneum was opened and the structures of the hepatocystic triangle were delineated. Once the critical view of safety was obtained, the cystic duct was singly clipped distally and partially divided with a ductotomy. The proximal duct was milked of any debris but no backflow of bile was identified. Using an Fuchs Chappell clamp, a cholangiocatheter was fed into the proximal segment of the cystic duct and clamped into place. However, I was unable to flush the catheter and so I tried several more attempts at replacement as well as increasing the size of the ductotomy. At one point I thought maybe I had simply divided the node of Calot overlying the duct and not entered the duct itself. In order to evaluate this further I skeletonized the duct more proximally with additional dissection and, in fact, confirmed that I had performed a ductotomy. This time I was able to feed the cholangiocatheter and under fluoroscopy a cholangiogram was then obtained showing a standard length cystic duct flowing into a dilated common bile duct with unobstructed antegrade flow of contrast into the duodenum. There was also retrograde flow through the common hepatic duct into the right and left hepatic ducts that also appeared mildly dilated. Satisfied with this result, the cholangiocatheter was withdrawn and the proximal cystic duct was sealed with clips and the cystic duct was completely transected. The same process was used for the cystic artery. The gallbladder was then removed from the gallbladder fossa with the use of electrocautery. Selective electrocautery was used to obtain hemostasis in the gallbladder fossa. The gallbladder was placed in an Endo Catch bag and removed from the peritoneum. Morison's pouch was irrigated and the effluent was suctioned free of the peritoneum. Hemostasis was again confirmed. Pneumoperitoneum was evacuated and the fascia of the 12 mm port site was closed with #1Vicryl in a [id number] fashion. A total of 30 mL of anesthetic was injected at the port sites for postoperative pain control. The skin of each port site was then closed in subcuticular fashion using 4-0 Monocryl. Steri-Strips and bandages were applied as dressings. Patient tolerated the procedure well without any apparent complications. On emergence from their anesthetic the patient was taken to PACU for ongoing recovery. Complications None Admit VTE Documentation VTE Mechan Device Prophylaxis: SCD's Procedures Digestive [id number]-49xxx: [id number] Laparo cholecystectomy/graph
--- NOTE | 2024-03-25 13:43 | PCM.POST.ANE ---
Anesthesia: Postop Eval I Current Vital Signs Temperature: 99.9 F Pulse Rate: 80 Blood Pressure: 97/50 Respiratory Rate: 18 Pulse Ox: 93 Oxygen Delivery Method: Room Air Assessment Airway patent: Yes Spontaneous unlabored respirations: Yes Mental status: Asleep nausea: No Vomiting: No Anesthesia Complication: No Fluid Hydration Crystalloid volume administer (ml): 1,800 Total IV fluid infused: 1,800 Progress Note Anesthesia document: Postop Eval 1 completed: Yes
--- NOTE | 2024-03-25 13:57 | POSTOPAN2_ITS ---
Anesthesia Postop Eval I Sum Postop Eval Completion status Anesthesia document: Postop Eval 1 completed: Yes Anesthesia Postop Eval I Summary Anesthesia Postop Eval I Summary: Anesthesia Postop Eval I: Assessment Summary Airway patent Yes 03/25/24 13:44 CYBER SPECIAL AGENT.CSIR Spontaneous unlabored Yes 03/25/24 13:44 CYBER SPECIAL AGENT.CSIR respirations Mental status Asleep 03/25/24 13:44 CYBER SPECIAL AGENT.CSIR nausea No 03/25/24 13:44 CYBER SPECIAL AGENT.CSIR Vomiting No 03/25/24 13:44 CYBER SPECIAL AGENT.CSIR Anesthesia Postop Eval I: Fluid Summary Crystalloid volume administer 1,800 03/25/24 13:44 CYBER SPECIAL AGENT.CSIR (ml) Colloids volume administered ( ml) Blood Product volume administered (ml) Total IV fluid infused 1,800 03/25/24 13:44 CYBER SPECIAL AGENT.CSIR Anesthesia Postop Eval I: Summary Notes Anesthesia Complication No 03/25/24 13:44 CYBER SPECIAL AGENT.CSIR Anesthesia Complication Comment: Post-operative progress note Anesthesia: Postop Eval II Evaluation Mental status: Awake Pain Level: 0 nausea: No Vomiting: No Complications Anesthesia Complication: No
--- NOTE | 2024-03-25 13:57 | PCM.POSTANE2 ---
Anesthesia Postop Eval I Sum Postop Eval Completion status Anesthesia document: Postop Eval 1 completed: Yes Anesthesia Postop Eval I Summary Anesthesia Postop Eval I Summary: Anesthesia Postop Eval I: Assessment Summary Airway patent Yes 03/25/24 13:44 GLASS ROBOT OPERATOR.CSIR Spontaneous unlabored Yes 03/25/24 13:44 GLASS ROBOT OPERATOR.CSIR respirations Mental status Asleep 03/25/24 13:44 GLASS ROBOT OPERATOR.CSIR nausea No 03/25/24 13:44 GLASS ROBOT OPERATOR.CSIR Vomiting No 03/25/24 13:44 GLASS ROBOT OPERATOR.CSIR Anesthesia Postop Eval I: Fluid Summary Crystalloid volume administer 1,800 03/25/24 13:44 GLASS ROBOT OPERATOR.CSIR (ml) Colloids volume administered ( ml) Blood Product volume administered (ml) Total IV fluid infused 1,800 03/25/24 13:44 GLASS ROBOT OPERATOR.CSIR Anesthesia Postop Eval I: Summary Notes Anesthesia Complication No 03/25/24 13:44 GLASS ROBOT OPERATOR.CSIR Anesthesia Complication Comment: Post-operative progress note Anesthesia: Postop Eval II Evaluation Mental status: Awake Pain Level: 0 nausea: No Vomiting: No Complications Anesthesia Complication: No
--- NOTE | 2024-03-25 15:34 | CASEMGMT ---
FAISAL ALDANA Assessment: Face to Face with pt for initial transition planning/care coordination assessment. RN JOVAN introduced self and role at [facility], pt voices understanding and consents to assessment. Pt lying in bed in no distress, at bedside. Nurse finishing up charting. Pt is A&O x4 and answers all questions appropriately at this time. Care providers, pharmacy, and demographics verified/updated. Admitting Dx: Gallstone pancreatitits with choleystitis PCP: Barry Specialists: Yolanda Gaspar RA Preferred Pharmacy: [facility] Insurance: Medicare, [facility] Prescription Benefit: yes LNOK: [place] - Living Arrangements: Pt lives with in a 1 story home with 2 steps to enter. States I with ADLs and IADLs. Transportation: Pt drives self and denies concerns with transportation. will transport pt home at DC. DME: Denies HHC/SNF: Denies Hx of. Pt states no concerns with going home at time of dc. Pt states no further concerns/needs. CM to follow. Advised pt to ask CM if any further question/concerns/needs arise, voices understanding. Pt Goal: Home Plan: Home Daily MALONE CM
[2024-03-25] MEDS: 0.9% Normal Saline (1000mL) 1,000 ML 75 ML IV (15:35)
--- NOTE | 2024-03-25 16:21 | CASEMGMT ---
Social Work SW met with pt to discuss advance directives.? Pt confirms she has completed a living will and health care POA naming , Calvin, then daughter Meryl Kothari.? Pt notified that documents are not on file at [facility] and SW requested they be brought in for scanning into the EMR.? TIFFANIE Faulkner
[2024-03-25] MEDS: Acetaminophen 500 MG Tablet PO (19:44)
[2024-03-26 00:27] VITALS: BP 98/54; PULSE 73; RESP 18; TEMP 37; O2SAT 95
[2024-03-26 04:28] VITALS: BP 103/61; PULSE 68; RESP 16; TEMP 36.8; O2SAT 95
[2024-03-26] MEDS: 0.9% Normal Saline (1000mL) 1,000 ML 75 ML IV (04:28)
[2024-03-26 06:34] LABS: Absolute Lymphocyte Count 1.02 X10^3/uL (0.83-4.51); Absolute Neutrophil Count 10.9 X10^3/uL (2.0-7.7); Basophil# 0.01 X10^3/uL; Basophil% 0.1 % (0-1); Hematocrit 33.5 % (37-47); Hemoglobin 11.1 g/dL (12.0-15.0); Lymphocyte # 1.02 X10^3/ul (0.83-4.51); Mean Corp Hgb Conc 33.1 g/dL (32-36); Mean Corpuscular Hgb 29.4 pg (27.0-32.0); Mean Corpuscular Volume 88.6 fL (81-99); Monocyte# 0.87 X10^3/uL; Monocyte% 6.8 % (0-10); NRBC Flagged by Analyzer 0 % (0-5); Neutrophil # 10.85 X10^3/uL (2.7-7.7); Neutrophil % 84.6 % (47-70); Platelet Count 264 K/mm3 (150-450); RBC Distribution Width CV 15.7 % (11.6-14.6); RBC Distribution Width SD 51.1 fl (35.1-43.9); Red Blood Count 3.78 M/mm3 (4.2-5.4); White Blood Count 12.8 K/mm3 (4.4-11.0)
[2024-03-26 07:07] LABS: ALB/GLOB Ratio 0.8 RATIO (0.9-2.4); AST(SGOT) 192 U/L (15-37); Alanine Aminotransfer ALT/SGPT 478 U/L (13-56); Albumin, Serum 2.6 g/dL (3.2-5.0); Alkaline Phosphatase 384 U/L (45-117); Anion Gap 6 (5-15); BUN 9 mg/dL (7-18); BUN/Creat Ratio 18.1 RATIO (10-20); Chloride 112 mmol/L (98-107); EST Glomerular Filtration Rate 130 mL/min (>60); Est Glom Filt Rate - Afr Amer 158 mL/min (>60); Estimated Creatinine Clearance 61.34 ml/min; Globulin 3.4 g/dL (2.2-4.2); Glucose 119 mg/dL (74-106); Potassium 3.8 mmol/L (3.5-5.1); Sodium Level 141 mmol/L (136-145)
[2024-03-26 07:30] VITALS: BP 112/59; PULSE 63; RESP 18; TEMP 36.6; O2SAT 98
--- NOTE | 2024-03-26 09:45 | PN.SURG_ITS ---
Subjective Subjective Patient evaluated resting comfortably in bed. She notes tolerating her regular breakfast. She notes incisional discomfort is tolerable. She denies any nausea, vomiting, fever. Objective Data Objective Data Vital Signs: Vital Signs Temp Pulse Resp BP Pulse Ox O2 Del Method O2 Flow Rate 97.8 F 63 18 112/59 L 98 Room Air 2 03/26/24 07:30 03/26/24 07:30 03/26/24 07:30 03/26/24 07:30 03/26/24 07:30 03/26/24 07:30 03/25/24 14:45 Oxygen Flow Rate (L/min) 2 Oxygen Delivery Method Room Air Weight: 158 lb 11.725 oz Body Mass Index (BMI) 28.0 Intake & Output: Intake and Output for Last 24 Hours 03/24/24 03/25/24 03/26/24 23:59 23:59 23:59 Intake Total 1000 / 1000 4080.25 / 4080.25 1966.25 / 1966.25 Output Total 850 / 850 500 / 500 Balance 1000 / 1000 3230.25 / 3230.25 1466.25 / 1466.25 Lab / Micro Data 03/26/24 06:09 03/26/24 06:09 Labs: Laboratory Results - last 24 hr 03/26/24 06:09: WBC 12.8 H, RBC 3.78 L, Hgb 11.1 L, Hct 33.5 L, MCV 88.6, MCH 29.4, MCHC 33.1, RDW Std Deviation 51.1 H, RDW Coeff of Fuad 15.7 H, Plt Count 264, MPV 11.0, Immature Gran % (Auto) 0.500, Neut % (Auto) 84.6 H, Lymph % (Auto) 8.0 L, [place] % (Auto) 6.8, Eos % (Auto) 0.0, Baso % (Auto) 0.1, Absolute Neuts (auto) 10.9 H, Absolute Lymphs (auto) 1.02, Nucleated RBC % 0, Sodium 141, Potassium 3.8, Chloride 112 H, Carbon Dioxide 23.0, Anion Gap 6, BUN 9, C reatinine 0.50 L, Estim Creat Clear Calc 61.34, Est GFR (MDRD) Af Amer 158, Est GFR (MDRD) Non-Af 130, BUN/Creatinine Ratio 18.1, Glucose 119 H, Calcium 9.0, T otal Bilirubin 1.30 H, AST 192 H, ALT 478 H, Alkaline Phosphatase 384 H, Total Protein 6.0 L, Albumin 2.6 L, Globulin 3.4, Albumin/Globulin Ratio 0.8 L Radiography Diagnostic Testing: Radiology Impression Cholangiogram 03/25/24 11:55 IMPRESSION: Unremarkable intraoperative cholangiogram. Electronically Signed: Brendan Alonso MD at 7:23 EDT , Physical Exam GI GI Narrative: Abdomen- incisions c/d/i. No erythema or infection noted. Assessment & Plan Assessment/Plan (1) Cholecystitis, chronic: PLAN: I am following this patient s/p laparoscopic cholecystectomy with IOC by Dr. Tompkins. He has independently evaluated this patient. Patient's liver enzymes are trending down. Plan for patient to be discharged today pending lunch is tolerated. She will need to have follow-up labs just prior to her follow-up appointment. Charges/Coding Visit Charges Inpatient E&M: 13922 Subs Hosp L1 (post-op; no charge)
--- NOTE | 2024-03-26 10:02 | PCM.DC ---
Discharge Instructions Diet Discharge Diet: Light diet - advance as tolerated Activity Discharge Activity: May Not Drive (3 days or while taking narcotic pain medication) Lifting Restrictions: 15 pounds for 2 weeks Dressing / Incision Call your doctor if your incision/area has: Continuous Slow Oozing, Sudden Increased Bleeding, Increased Pain/ Swelling, Increased Redness, Foul Smelling Discharge and Swelling at the incision site Call your doctor if you observe: Fever of 101 or Higher Suture Line Care: Avoid Pulling/Pushing and Avoid Pinching/Bending Remove Dressing in: 1 day Cleanse incision/area with: Soap & Water Follow Up Care Please Follow Up With: Kalin Tompkins MD When: Please contact our office to schedule a 10-14 day follow-up at [phone] Test Results: Test results from this visit will be discussed in further detail at your follow-up appointment, if applicable. Discharge Plan Admission Admit Date/Time: 03/24/24 23:44 Primary Reason for Your Visit: Chronic cholecystitis Attending Provider: Kalin Tompkins Primary Care Provider: Daniel Reddy Instructions Additional Instructions / Restrictions: Cholecystectomy Diet ? Start light with soups and soft bland foods. You may advance diet as tolerated. Activity ? You may drive in 3-5 days but not while taking narcotic pain medication. ? I encourage walking. You may go up steps, one at a time. ? Do not swim or use hot tubs for 2 weeks. ? For comfort, you may use warm compresses or ice as needed for 15-20 minutes at a time. Lifting ? You may lift up to 15 pounds for 2 weeks. Dressings/Incision ? You may shower OVER your plastic dressings ? Do NOT tub bathe for 1 week ? Leave plastic dressings on for 1 day. ? When plastic dressings are removed, you will find steri strips. It is okay to continue showering with them in place, pat them dry. ? You may remove steri-strips after 1 week. We recommend getting them soaking wet for easier removal. Medications ? Anesthesia used during surgery and pain medications may cause constipation. I recommend initiating on the day of surgery a fiber supplement like, Metamucil, Citrucel, FiberCon, Benefiber, or a generic form of these medications. 1 heaping tablespoon in water daily. You may continue to utilize any bowel regimen or oral laxatives that you routinely take. If constipated, recommend taking Miralax (one tablespoon) daily until normal bowel movements are achieved. ? As long as you are not intolerant to Tylenol, acetaminophen, ibuprofen, Motrin, Advil, Aleve, or similar medications, I would recommend transitioning to these fgfq-cwi-trenamv medicines as soon as possible instead of continued use of narcotic pain medication. Follow up ? You should call [facility] soon after surgery, at [phone] option 1 to make a follow up appointment for 10-14 days after your surgery. You will need to obtain lab work checking your liver enzymes the same day as your follow-up appointment. Discharge Orders/Prescriptions Prescriptions: New oxycodone 5 mg Tablet 5 mg PO Q6H PRN PRN (Reason: Pain Score 6-10) 2 Days Qty: 6 0RF Continued cholecalciferol (vitamin D3) 50 mcg (2,000 unit) capsule 50 mcg PO DAILY zinc citrate-phytase 25-500 mg capsule 1 cap PO DAILY chelated magnesium PO ascorbate calcium (vitamin C) 500 mg tablet 500 mg PO DAILY urinary tract essentials 2 tab PO DAILY k-2 200 mg tablet 200 mg PO DAILY omega-3 fatty acids 1,000 mg capsule 1,000 mg PO DAILY selenium 200 mcg capsule 200 mcg PO DAILY kriylkig-ftqds-wbd7-C-bry-bor [Kqidjkos-Jluqw-OLL(with boron)] 178-185-87-1 mg tablet 1 tab PO TID magnesium chloride 64 mg magnesium tablet 64 mg PO DAILY QUERCITIN 1 tab PO DAILY Other Ambulatory Orders: Comprehensive Metabolic Profil (Routine) Timeframe: [id number] Facility: [facility] - Location: Laboratory Ordered By: Jing MEDINA Referrals / Follow Up: Daniel Reddy DO [Primary Care Provider] - Kalin Tompkins MD [Med Staff - Active Staff] - (Follow-up in 10-14 days from surgery) Disposition Disposition (needs filled in before D/C Order can be placed): Home, Self Care
--- NOTE | 2024-03-26 10:52 | PCM.DC.SUM ---
Providers Date of Admission: 03/24/24 Date of Discharge: 03/26/24 Primary Care Physician: Dr. Daniel Reddy DO Reason For Visit: GALLSTONE PANCREATITIS WITH CHOLECYSTITIS Diagnosis Discharge Diagnosis (1) Cholecystitis, chronic: Status: Chronic Code(s): K81.1 - Chronic cholecystitis Plan: I am following this patient s/p laparoscopic cholecystectomy with IOC by Dr. Tompkins. He has independently evaluated this patient. Patient's liver enzymes are trending down. Plan for patient to be discharged today pending lunch is tolerated. She will need to have follow-up labs just prior to her follow-up appointment. Medications at Discharge Home Medications ascorbate calcium (vitamin C) 500 mg tablet 500 mg PO DAILY 04/21/20 chelated magnesium PO 04/21/20 cholecalciferol (vitamin D3) 50 mcg (2,000 unit) capsule 50 mcg PO DAILY 04/21/20 k-2 200 mg PO DAILY rx 04/21/20 omega-3 fatty acids 1,000 mg capsule 1,000 mg PO DAILY 04/21/20 urinary tract essentials 2 tab PO DAILY 04/21/20 zinc citrate-phytase 25 mg-500 mg capsule 1 cap PO DAILY 04/21/20 glucosamine 750 zl-baapbbimpmv-gci no1 625 mg-C 30 mg-bry 1 mg tablet (Vjyfzcznziq-Daetawzertg-DJY) 1 tab PO TID 11/29/23 magnesium chloride 64 mg (magnesium chloride) tablet 64 mg PO DAILY rx prescribed 11/29/23 selenium 200 mcg capsule 200 mcg PO DAILY 11/29/23 QUERCITIN 1 tab PO DAILY 02/23/24 oxycodone 5 mg tablet 5 mg PO Q6H PRN PRN Pain Score 6-10 2 days #6 tabs 03/26/24 Hospital Course Operations cholecystecomy Summary of Care Provided Minutes Spent on Discharge: 35 Hospital Course: Patient is a 69 y/o F, who presented to the ED with 4 day history of abdominal pain. Patient initially thought it may be food poisoning from [employer]. Patient was found to have leukocytosis, elevated liver enzymes, elevated lipase and RUQ u/s demonstrating chronic cholecystitis. Dr. Tompkins performed a laparoscopic cholecystectomy with intraoperative cholangiogram on 03/25/24. Patient tolerated the procedure well. Patient had an uneventful hospitalization. Her liver enzymes are trending down. Upon discharge, patient notes minimal amount of incisional discomfort. She denies nausea, vomiting. She is tolerating a regular diet. She notes passing flatus. Weight / BMI Weight Weight: 158 lb 11.725 oz Body Mass Index (BMI) 28.0 ABG / Lab / Microbiology Data 03/26/24 06:09 03/26/24 06:09 Laboratory: Laboratory Results - last 24 hr 03/26/24 06:09: WBC 12.8 H, RBC 3.78 L, Hgb 11.1 L, Hct 33.5 L, MCV 88.6, MCH 29.4, MCHC 33.1, RDW Std Deviation 51.1 H, RDW Coeff of Fuad 15.7 H, Plt Count 264, MPV 11.0, Immature Gran % (Auto) 0.500, Neut % (Auto) 84.6 H, Lymph % (Auto) 8.0 L, [place] % (Auto) 6.8, Eos % (Auto) 0.0, Baso % (Auto) 0.1, Absolute Neuts (auto) 10.9 H, Absolute Lymphs (auto) 1.02, Nucleated RBC % 0, Sodium 141, Potassium 3.8, Chloride 112 H, Carbon Dioxide 23.0, Anion Gap 6, BUN 9, Creatinine 0.50 L, Estim Creat Clear Calc 61.34, Est GFR (MDRD) Af Amer 158, Est GFR (MDRD) Non-Af 130, BUN/Creatinine Ratio 18.1, Glucose 119 H, Calcium 9.0, Total Bilirubin 1.30 H, AST 192 H, ALT 478 H, Alkaline Phosphatase 384 H, Total Protein 6.0 L, Albumin 2.6 L, Globulin 3.4, Albumin/Globulin Ratio 0.8 L Radiography Diagnostic Testing: Radiology Impression Cholangiogram 03/25/24 11:55 IMPRESSION: Unremarkable intraoperative cholangiogram. Electronically Signed: Brendan Alonso MD at 7:23 EDT , D/C Instructions Discharge Diet: Light diet - advance as tolerated Call your doctor if your incision/area has: Continuous Slow Oozing, Sudden Increased Bleeding, Increased Pain/ Swelling, Increased Redness, Foul Smelling Discharge and Swelling at the incision site Call your doctor if you observe: Fever of 101 or Higher Suture Line Care: Avoid Pulling/Pushing and Avoid Pinching/Bending Cleanse incision/area with: Soap & Water Please Follow Up With: Kalin Tompkins MD When: Please contact our office to schedule a 10-14 day follow-up at [phone] Meaningful Use Info Meaningful Use Meaningful Use Diagnoses (Choose all that apply): None applicable Ischemic Stroke Statin Dosing Therapy Reference: STATIN DOSE THERAPY REFERENCE: * Patients > 75 years receive moderate or high dose statin therapy. * Patients 75 years or YOUNGER should receive HIGH intensity statin dose unless contraindicated. You will be required to document reason for non-treatment if statin daily dose does not meet guidelines. HIGH DOSE STATIN THERAPY DAILY Atorvastatin > than or = to 40 mg Rosuvastatin > than or = to 20 mg Amlodipine + Atorvastatin > than or = to 2.5/40 mg Ezetimibe + Simvastatin 10/80 mg Simvastatin 80mg Discharge Plan Admission Admit Date/Time: 03/24/24 23:44 Primary Reason for Your Visit: Chronic cholecystitis Attending Provider: Kalin Tompkins Primary Care Provider: Daniel Reddy Instructions Additional Instructions / Restrictions: Cholecystectomy Diet ? Start light with soups and soft bland foods. You may advance diet as tolerated. Activity ? You may drive in 3-5 days but not while taking narcotic pain medication. ? I encourage walking. You may go up steps, one at a time. ? Do not swim or use hot tubs for 2 weeks. ? For comfort, you may use warm compresses or ice as needed for 15-20 minutes at a time. Lifting ? You may lift up to 15 pounds for 2 weeks. Dressings/Incision ? You may shower OVER your plastic dressings ? Do NOT tub bathe for 1 week ? Leave plastic dressings on for 1 day. ? When plastic dressings are removed, you will find steri strips. It is okay to continue showering with them in place, pat them dry. ? You may remove steri-strips after 1 week. We recommend getting them soaking wet for easier removal. Medications ? Anesthesia used during surgery and pain medications may cause constipation. I recommend initiating on the day of surgery a fiber supplement like, Metamucil, Citrucel, FiberCon, Benefiber, or a generic form of these medications. 1 heaping tablespoon in water daily. You may continue to utilize any bowel regimen or oral laxatives that you routinely take. If constipated, recommend taking Miralax (one tablespoon) daily until normal bowel movements are achieved. ? As long as you are not intolerant to Tylenol, acetaminophen, ibuprofen, Motrin, Advil, Aleve, or similar medications, I would recommend transitioning to these kfig-lma-xgryosa medicines as soon as possible instead of continued use of narcotic pain medication. Follow up ? You should call [facility] soon after surgery, at [phone] option 1 to make a follow up appointment for 10-14 days after your surgery. You will need to obtain lab work checking your liver enzymes the same day as your follow-up appointment. Discharge Orders/Prescriptions Prescriptions: New oxycodone 5 mg Tablet 5 mg PO Q6H PRN PRN (Reason: Pain Score 6-10) 2 Days Qty: 6 0RF Continued cholecalciferol (vitamin D3) 50 mcg (2,000 unit) capsule 50 mcg PO DAILY zinc citrate-phytase 25-500 mg capsule 1 cap PO DAILY chelated magnesium PO ascorbate calcium (vitamin C) 500 mg tablet 500 mg PO DAILY urinary tract essentials 2 tab PO DAILY k-2 200 mg tablet 200 mg PO DAILY omega-3 fatty acids 1,000 mg capsule 1,000 mg PO DAILY selenium 200 mcg capsule 200 mcg PO DAILY kkikaxct-hekst-cyl5-C-bry-bor [Ykxgwzum-Apxlb-MCZ(with boron)] 613-031-21-1 mg tablet 1 tab PO TID magnesium chloride 64 mg magnesium tablet 64 mg PO DAILY QUERCITIN 1 tab PO DAILY Other Ambulatory Orders: Comprehensive Metabolic Profil (Routine) Timeframe: [id number] Facility: [facility] - Location: Laboratory Ordered By: Jing MEDINA Referrals / Follow Up: Daniel Reddy DO [Primary Care Provider] - Kalin Tompkins MD [Med Staff - Active Staff] - (Follow-up in 10-14 days from surgery) Disposition Disposition (needs filled in before D/C Order can be placed): Home, Self Care Charges/Coding Visit Charges Inpatient E&M: 87930 Disch Hosp >30min (post-op)
--- NOTE | 2024-03-26 15:43 | PHA.DC_ITS ---
Pharmacy [facility] has performed discharge medication reconciliation and counseling for this patient. 1. OXYCODONE 5MG PO Q6H PRN PAIN The patient's discharge medication list was reviewed for discrepancies and discrepancies were resolved. The patient was counseled on the following discharge medications and changes in medications for homegoing were reviewed. The Reason for Use, instructions for use, and potential side effects were reviewed for all new medications. The patient's questions regarding all of their medications were answered. The patient was able to verbally demonstrate an understanding of their discharge medications. Patient counseled by pharmacy benefit managerNirav. Medications at Discharge Home Medications ascorbate calcium (vitamin C) 500 mg tablet 500 mg PO DAILY 04/21/20 chelated magnesium PO 04/21/20 cholecalciferol (vitamin D3) 50 mcg (2,000 unit) capsule 50 mcg PO DAILY 04/21/20 k-2 200 mg PO DAILY rx 04/21/20 omega-3 fatty acids 1,000 mg capsule 1,000 mg PO DAILY 04/21/20 urinary tract essentials 2 tab PO DAILY 04/21/20 zinc citrate-phytase 25 mg-500 mg capsule 1 cap PO DAILY 04/21/20 glucosamine 750 an-vvjttnbbnqb-gwt no1 625 mg-C 30 mg-bry 1 mg tablet (Weryvfqvdcf-Ihehxlbicia-XXX) 1 tab PO TID 11/29/23 magnesium chloride 64 mg (magnesium chloride) tablet 64 mg PO DAILY rx prescribed 11/29/23 selenium 200 mcg capsule 200 mcg PO DAILY 11/29/23 QUERCITIN 1 tab PO DAILY 02/23/24 oxycodone 5 mg tablet 5 mg PO Q6H PRN PRN Pain Score 6-10 2 days #6 tabs 03/26/24
== END 2024-03-26 15:55 | disposition home or self-care (01) | DRG 417 ==
LOC: ED 23:40 → MS3 23:52
PROVIDERS: Admitting Provider Surgery; Emergency Provider Emergency Medicine; PCP Family Medicine; Visit Provider Surgery
PROC: 0FT44ZZ Resection of Gallbladder, Percutaneous Endoscopic Approach (ICD-10-PCS; CPT 47610; principal; 2024-03-25 10:40)
DX: K80.12 Calculus of gallbladder with acute and chronic cholecystitis without obstruction (principal); K85.10 Biliary acute pancreatitis without necrosis or infection; E78.5 Hyperlipidemia, unspecified; R73.9 Hyperglycemia, unspecified; Z79.899 Other long term (current) drug therapy
CPT/HCPCS: 36415; 74177; 74300; 76000; 76705; 80053; 81001; 83690; 83735; 84100; 85025; 88304; 90471; 93005; 94668; 99284; J7030; Q9967; A4216; J2405

== ENCOUNTER → 2024-10-25 | Outpatient (CLI) | payer MEDICARE, OTHER, SELFPAY ==
[2024-10-25 16:44] LABS: Erythrocyte Sedimentation Rate 10 mm/hr (0-30)
[2024-10-25 16:55] LABS: Fibrinogen 374 mg/dl (203-444)
[2024-10-25 17:17] LABS: CRP 4.46 mg/L (0.0-3.0); Cholesterol 251 mg/dL (200); High Density Lipoprotein 66 mg/dL; Magnesium 2.6 mg/dL (1.6-2.6); Rheumatoid Factor < 10.0 IU/mL (<15); Triglycerides 104 mg/dL; Very Low Density Lipoprotein 21 mg/dL (5-40)
[2024-10-25 18:17] LABS: Vitamin D,25 Hydroxy 75.6 ng/mL
[2024-10-28 13:06] LABS: ANTINUCLEAR ANTIBODIES DIRECT Negative (Negative)
[2024-10-28 14:53] LABS: Vitamin B12 630 pg/mL (211-911)
[2024-10-31 18:07] LABS: CCP IgG Antibodies 9 units (0-19); HLA B27 Negative (.)
== END | disposition home or self-care (01) ==
LOC: BIMLAB 14:53
PROVIDERS: PCP Family Medicine; Referring Provider Physician Assistant; Visit Provider Physician Assistant
DX: M79.10 Myalgia, unspecified site (principal); E55.9 Vitamin D deficiency, unspecified; E78.5 Hyperlipidemia, unspecified
CPT/HCPCS: 36415; 80061; 81374; 82306; 82607; 83735; 84443; 85384; 85652; 86038; 86140; 86200; 86225; 86431